=== PATIENT | male | born 1960 | race Caucasian/White ===

== ENCOUNTER 2024-10-27 10:49 | Inpatient (IN) | payer SELFPAY ==
[2024-10-27] VITALS (78 sets, daily range): BP systolic 168–195; BP diastolic 82–118; PULSE 63–87; RESP 12–32; TEMP 36.9–37; O2SAT 92–98; BMI 29.7
--- NOTE | 2024-10-27 10:53 | ECG_ITS ---
[facility] Date: 2024-10-27 Pat Name: Ovidio Issa Department: Room: Gender: Male [employer]: : 1960 Requested By: Naz Dumont Order Number: [id number] Rodrigo MD: VINCENT PRATER Measurements Intervals Filer Rate: 67 P: 33 IL: 192 QRS: 59 QRSD: 119 T: -59 QT: 430 QTc: 456 Interpretive Statements SINUS RHYTHM No previous ECG available for comparison Electronically Signed On 10-27-2024 20:58:09 CDT by VINCENT PRATER [email or web address]
--- NOTE | 2024-10-27 11:03 | W.ED.NEUROSD ---
HPI - Neuro Symptoms/Deficit General: Chief Complaint: Weakness Stated Complaint: arm numbness Time Seen by Provider: 10/27/24 10:57 History of Present Illness: 64-year-old man with a history of reported stroke with no residual deficit now on baby aspirin daily, and hypertension who presents to the emergency room with strokelike symptoms by ambulance. Says around 6 this morning developed some shoulder pain. Around 730 he started feeling weak in his arm and having difficulty opening objects and controlling his arm. After that he developed some numbness in his right face and now he is complaining of some right leg weakness. No dysarthria. No facial droop. No fevers. No cough. No chest pain. No abdominal pain. Related Data Home Medications ?Medication ?Instructions ?Recorded ?Confirmed aspirin 81 mg chewable tablet 81 mg PO QAM 10/02/23 10/27/24 clonidine HCl 0.1 mg tablet See Rx Instructions .Route .COMPLEX 10/02/23 10/27/24 olmesartan 20 mg tablet 20 mg PO DAILY 10/02/23 10/27/24 Allergies Allergy/AdvReac Type Severity Reaction Status Date / Time No Known Allergies Allergy Unverified 10/02/23 09:35 Review of Systems Narrative: Constitutional symptoms: Negative except as documented in HPI. Skin symptoms: Negative except as documented in HPI. Eye symptoms: Negative except as documented in HPI. ENMT symptoms: Negative except as documented in HPI. Respiratory symptoms: Negative except as documented in HPI. Cardiovascular symptoms: Negative except as documented in HPI. Gastrointestinal symptoms: Negative except as documented in HPI. Genitourinary symptoms: Negative except as documented in HPI. Musculoskeletal symptoms: Negative except as documented in HPI. Neurologic symptoms: Negative except as documented in HPI. Psychiatric symptoms: Negative except as documented in HPI. Endocrine symptoms: Negative except as documented in HPI. Physical Exam Narrative: EXAM NARRATIVE: General: Alert, no acute distress. Skin: Warm, dry. Head: Normocephalic, atraumatic. Neck: Supple, trachea midline. Eye: Extraocular movements are intact. Ears, nose, mouth and throat: mucosa moist. Cardiovascular: Regular, Normal peripheral perfusion. Respiratory: Lungs are clear to auscultation, respirations are non-labored, breath sounds are equal, Symmetrical chest wall expansion. Gastrointestinal: Soft, Nontender, Non distended Musculoskeletal: Normal ROM, no deformity. Neurological: Alert and oriented, patient has some definite right handed ataxia. Difficulty with [id number]. Misses my finger completely. Mild difference in ground products director strength on the right. He has some sensory deficit on the right side of his face. Prep some mild drift in his right leg. Psychiatric: Cooperative, appropriate mood & affect. Course Vital Signs: Vital signs: Vital Signs Temperature 98.6 F 10/27/24 10:56 Pulse Rate 72 10/27/24 13:15 Respiratory Rate 18 10/27/24 12:56 Blood Pressure 171/91 10/27/24 13:15 Pulse Oximetry 94 10/27/24 13:15 Oxygen Delivery Me thod Room Air 10/27/24 13:15 MDM - Neuro Symptoms/Deficit Medical Decision Making Medical decision making: Differential diagnosis for patient with focal neurologic deficit(s) includes but not limited to and based on the above HPI, review of systems and physical exam: ischemic stroke, hemorrhagic stroke and embolic stroke secondary to atrial fibrillation), TIA, Desouza's palsey, metabolic encephalopathy with previous stroke. Orders placed to evaluate differential diagnosis based on the above differential, HPI and physical exam NIH Stroke Scale/Score (NIHSS) from [employer] on 10/27/2024 All calculations should be rechecked by clinician prior to use RESULT SUMMARY: 4 points NIH Stroke Scale INPUTS: 1A: Level of consciousness ?> 0 = Alert; keenly responsive 1B: Ask month and age ?> 0 = Both questions right 1C: 'Blink eyes' & 'squeeze hands' ?> 0 = Performs both tasks 2: Horizontal extraocular movements ?> 0 = Normal 3: Visual banks ?> 0 = No visual loss 4: Facial palsy ?> 0 = Normal symmetry 5A: Left arm motor drift ?> 0 = No drift for 10 seconds 5B: Right arm motor drift ?> 1 = Drift, but doesn't hit bed 6A: Left leg motor drift ?> 0 = No drift for 5 seconds 6B: Right leg motor drift ?> 1 = Drift, but doesn't hit bed 7: Limb Ataxia ?> 1 = Ataxia in 1 Limb 8: Sensation ?> 1 = Mild-moderate loss: less sharp/more dull 9: Language/aphasia ?> 0 = Normal; no aphasia 10: Dysarthria ?> 0 = Normal 11: Extinction/inattention ?> 0 = No abnormality CT head: No acute intracranial process. no intracranial hemorrhage, no evidence of infarct. no evidence of acute fracture.This was reviewed and interpreted by myself the ER physician. Consultation: Dr. Moctezuma examined the patient in the emergency room. She determined last known well time to be closer to 7:30 AM. And within the hour for now half-hour time frame so TNKase was given. Under her instruction. Recommends admission to the hospitalist service to the ICU. EKG: Time 1053. Rate 67. Normal sinus rhythm, nonspecific ST changes, no ectopy, normal DC & QRS intervals, This was reviewed and interpreted by myself the ER physician at 1058. Chest x-ray: No acute process. No infiltrate. No pneumothorax. This was reviewed and interpreted by myself the emergency room physician. I also reviewed the radiology report. Lab Review: Laboratory results were reviewed and interpreted by myself the emergency room physician. No leukocytosis. No anemia. No renal failure. Coags are normal. CTA head and neck: No significant cervical or carotid stenosis. Mild plaque in intimal thickening. Paucity of vessels in distal M2/M3 middle cerebral artery territory on the left. No identifiable thrombus. This was reviewed and interpreted by myself the emergency room physician. I also reviewed the radiology report. I reviewed the patient's medical record. Reexamination: Patient remained stable. No increased work of breathing. No altered mental status. No change in symptoms after tenecteplase. Says he still has difficulty with movement of his right hand and cannot tell where it is in space when he has his eyes closed. Consultation: I spoke Dr. Garcia who is on-call for the hospitalist service who agrees to admission to the ICU. Assessment and plan: Cerebrovascular accident Right arm ataxia Hypertension -I discussed the patient with the hospitalist on-call who is admitting the patient. - Discussed findings and plan with patient. Answered any questions. - All laboratory values were reviewed and interpreted personally by myself, the ER physician - All imaging was reviewed and interpreted personally by myself, the ER physician. - Evaluation and treatment of this problem were appropriate in the emergency setting Critical care -I spent a total of >35 minutes of critical care time managing the patient, independent of any other practitioner. -The time involved in the performance of separately reportable procedures was not counted towards critical care time. Lab Data 10/27/24 11:16 10/27/24 11:51 Radiology Impressions Chest X-Ray 10/27/24 11:04 IMPRESSION: Mild atelectasis versus small amount of infiltrate left lung base. No consolidation or effusion. Head CT 10/27/24 11:04 IMPRESSION: 1. No acute intracranial hemorrhage or edema. 2. Mild small vessel changes. Tiny lacunar infarct in the RIGHT internal capsule. Notified Naz Okeefe MD at 10/27/2024 11:16 AM. Head/Neck CTA 10/27/24 11:43 IMPRESSION: 1. No significant cervical carotid artery stenosis. Mild plaque and intimal thickening. 2. Intact vertebral arteries. 3. Paucity of vessels distal M2/M3 middle cerebral artery territory on the LEFT. No identifiable thrombus. 4. No additional areas of stenosis or aneurysm. Laboratory Results WBC 8.18 10^3/uL (3.29-11.43) 10/27/24 11:16 RBC 5.34 10^6/uL (3.85-5.65) 10/27/24 11:16 Hgb 16.00 g/dL (11.27-16.99) 10/27/24 11:16 Hct 48.3 % (37-53) 10/27/24 11:16 MCV 90.4 fl (82-101) 10/27/24 11:16 MCH 30.0 pg (27-33) 10/27/24 11:16 MCHC 33.1 g/dL (30-55) 10/27/24 11:16 RDW 12.5 % (12.1-15.1) 10/27/24 11:16 Plt Count 195 10^3/cmm (157-399) 10/27/24 11:16 MPV 11.0 fL (7.4-10.4) H 10/27/24 11:16 Neut % (Auto) 79.5 % 10/27/24 11:16 Lymph % (Auto) 13.2 % 10/27/24 11:16 Morrison % (Auto) 6.1 % 10/27/24 11:16 Eos % (Auto) 0.2 % 10/27/24 11:16 Baso % (Auto) 0.4 % 10/27/24 11:16 Neut # (Auto) 6.50 10^3/uL (1.8-7.7) 10/27/24 11:16 Lymph # (Auto) 1.1 10^3/uL (0.8-4.8) 10/27/24 11:16 Morrison # (Auto) 0.5 10^3/uL (0.2-0.9) 10/27/24 11:16 Eos # (Auto) 0.0 10^3/uL (0.0-0.8) 10/27/24 11:16 Baso # (Auto) 0.0 10^3/uL (0.0-0.1) 10/27/24 11:16 Nucleated RBC % (auto) 0 % 10/27/24 11:16 Nucleated RBCs # 0.0 /100WBC 10/27/24 11:16 PT 13.80 SECONDS (12.1-14.9) 10/27/24 11:51 INR 0.99 (0.8-1.2) 10/27/24 11:51 APTT 21.9 SECONDS (23.9-36.7) L 10/27/24 11:51 Sodium 136 mmol/L (136-145) 10/27/24 11:51 Potassium 4.0 mmol/L (3.5-5.1) 10/27/24 11:51 Chloride 101 mmol/L (98-107) 10/27/24 11:51 Carbon Dioxide 25 mmol/L (22-29) 10/27/24 11:51 Anion Gap 14.0 (5-19) 10/27/24 11:51 BUN 15 mg/dL (8-23) 10/27/24 11:51 Creatinine 0.9 mg/dL (0.7-1.2) 10/27/24 11:51 GFR Calculation 85.5 mL/min (90-130) L 10/27/24 11:51 Glucose 123 mg/dL (65-115) H 10/27/24 11:51 POC Glucose 124 mg/dL (70-110) H 10/27/24 11:04 Calculated Osmolality 284 mOsm/kg (285-295) L 10/27/24 11:51 Calcium 8.9 mg/dL (8.5-10.5) 10/27/24 11:51 Total Bilirubin 0.6 mg/dL (0.15-1.2) 10/27/24 11:51 AST 18 U/L (0-40) 10/27/24 11:51 ALT 12 U/L (0-41) 10/27/24 11:51 Alkaline Phosphatase 80 U/L (40-130) 10/27/24 11:51 Total Protein 7.8 g/dL (6.6-8.7) 10/27/24 11:51 Albumin 4.0 g/dL (3.5-5.2) 10/27/24 11:51 Globulin 3.8 g/dL (1.3-4.6) 10/27/24 11:51 All radiology interpretation(s) finalized by discharge Discharge Plan Discharge Patient Disposition: Admitted As Inpatient Clinical Impression: Acute CVA (cerebrovascular accident) Condition: Stable Coding Level of Care Code ED [employer] for [employer] Conner
--- NOTE | 2024-10-27 11:04 | XRR_ITS ---
PROCEDURE INFORMATION: Exam: XR Chest Exam date and time: 10/27/2024 11:40 AM Age: 64 years old Clinical indication: Other: AMS; Additional info: Weakness TECHNIQUE: Imaging protocol: Radiologic exam of the chest. Views: 1 view. COMPARISON: No relevant prior studies available. FINDINGS: Lungs: Mild atelectasis versus small amount of infiltrate left lung base. No consolidation. Pleural spaces: No pleural effusion. No pneumothorax. Heart/Mediastinum: Cardiac size is upper limits of normal. Bones/joints: Visualized osseous structures show no acute abnormality. Spondylotic change thoracic spine. Mild degenerative change visualized right shoulder. XR/XR chest 1V portable [id number] IMPRESSION: Mild atelectasis versus small amount of infiltrate left lung base. No consolidation or effusion.
--- NOTE | 2024-10-27 11:04 | CT_ITS ---
WS: [id number] CT HEAD NONCONTRAST HISTORY: possible stroke, right-sided facial numbness. TECHNIQUE: Contiguous axial imaging performed through the brain. Bone and soft tissue windows. Sagittal and coronal reformats reviewed. All CT scans at [facility] use at least one of these dose optimization techniques: automated exposure control; mA and/or kV adjustment per patient size (includes targeted exams where dose is matched to clinical indication); or iterative reconstruction. DLP: 1160.67 mGy COMPARISON: None available. No acute intracranial hemorrhage, midline shift or mass effect. No atrophy or prior infarcts or herniation. Very mild small vessel disease. Tiny lacunar in the RIGHT internal capsule. Mild cerebellar atrophy. Ventricles: Normal size with no hydrocephalus. No inferior displacement of the cerebellar tonsils. Paranasal sinuses: As visualized are clear. Mastoid air cells: Well pneumatized. Calvarium and scalp: Skull is intact with no soft tissue edema or swelling. CT/CT head thrombolytic [id number] IMPRESSION: 1. No acute intracranial hemorrhage or edema. 2. Mild small vessel changes. Tiny lacunar infarct in the RIGHT internal capsu le. Notified Naz Okeefe MD at 10/27/2024 11:16 AM.
[2024-10-27 11:06] LABS: Glucose Point of Care 124 mg/dL (70-110)
[2024-10-27] MEDS: labetalol 5 mg/mL SDV 20mL 10 MG IVP (11:28)
[2024-10-27 11:29] LABS: Basophils % 0.4 %; Eosinophils % 0.2 %; Hematocrit 48.3 % (37-53); Lymphocytes # 1.1 10^3/uL (0.8-4.8); Lymphocytes % 13.2 %; Mean Corpuscular HGB Conc 33.1 g/dL (30-55); Mean Corpuscular Volume 90.4 fl (82-101); Monocytes # 0.5 10^3/uL (0.2-0.9); Monocytes % 6.1 %; Neutrophils % 79.5 %; Nucleated Red Blood Cells % 0 %; Platelet Count 195 10^3/cmm (157-399); Red Blood Count 5.34 10^6/uL (3.85-5.65); Red Cell Distribution Width 12.5 % (12.1-15.1); White Blood Count 8.18 10^3/uL (3.29-11.43)
--- NOTE | 2024-10-27 11:29 | PC.NURSE ---
DISCUSSION OF TIMELINE WITH [facility] IN THE ROOM OCCURRING WITH PATIENT SINCE ARRIVAL BACK FROM CT. UNSURE OF PATIENT WAS LKW AT 0645, 0800, OR 0900.
--- NOTE | 2024-10-27 11:34 | PC.NURSE ---
[facility] STATING HIS LKW 7117.
[2024-10-27] MEDS: tenecteplase 50mg Kit (STROKE) 24 MG IVP (11:40)
--- NOTE | 2024-10-27 11:41 | PC.NURSE ---
PER [facility], GIVEN TNKASE. GIVEN AT 1139.
--- NOTE | 2024-10-27 11:43 | CT_ITS ---
WS: [id number] CT ANGIOGRAM CEREBRAL AND CAROTID ARTERIES HISTORY: Possible stroke TECHNIQUE: CT angiogram is performed of the carotid and cerebral arteries. During arterial injection imaging is obtained from the skull vertex to the aortic arch in 1.25 mm imaging. Coronal and sagittal reformats are submitted. Additional multi planar reformats of the carotid and cerebral arteries are submitted, MIP imaging also reviewed. NASCET criteria utilized. All CT scans at [facility] use at least one of these dose optimization techniques: automated exposure control; mA and/or kV adjustment per patient size (includes targeted exams where dose is matched to clinical indication); or iterative reconstruction. CONTRAST: Omnipaque 350; 100 mL IV. DLP: 582.04 mGy.cm COMPARISON: CT head 10/27/2024 Carotid Angiogram: Right carotid: Common carotid artery: Arises normally from the innominate artery. No significant plaque or stenosis. Internal carotid artery: Small amount of intimal thickening at the bifurcation. No stenosis. External carotid artery: Patent. Left carotid: Common carotid artery: Bovine arch. No stenosis. Internal carotid artery: No plaque or stenosis. External carotid artery: Patent. Right vertebral artery: Unremarkable. Left vertebral artery: Unremarkable. Arises normally from the subclavian artery. Subclavian arteries: No stenosis or significant abnormality. Upper thorax: Normal. Thyroid gland: Normal. Osseous structures: Multilevel cervical spondylosis. Large anterior osteophytes. CEREBRAL ANGIOGRAM: Intracranial vertebral arteries: Normal with no significant atherosclerosis. Basilar artery: No significant stenosis or occlusion. No aneurysm. Intracranial Internal carotid arteries: No stenosis. Mild plaque. Middle cerebral arteries: Distal LEFT middle cerebral arteries, beyond the M2 arteries, paucity of vessels distally. Smaller irregular caliber vessels on the LEFT. Anterior cerebral arteries and ACOM: Normal. Posterior cerebral arteries and PCOM's: Normal. Dural venous sinuses are normally enhancing. CT/CT angio headneck* [id number] IMPRESSION: 1. No significant cervical carotid artery stenosis. Mild plaque and intimal th ickening. 2. Intact vertebral arteries. 3. Paucity of vessels distal M2/M3 middle cerebral artery territory on the LEF T. No identifiable thrombus. 4. No additional areas of stenosis or aneurysm.
[2024-10-27 12:11] LABS: INR 0.99 (0.8-1.2); Partial Thromboplastin Time 21.9 SECONDS (23.9-36.7)
[2024-10-27 12:20] LABS: Alanine Aminotransferase 12 U/L (0-41); Alkaline Phosphatase 80 U/L (40-130); Aspartate Amino Transferase 18 U/L (0-40); Blood Urea Nitrogen 15 mg/dL (8-23); Calcium 8.9 mg/dL (8.5-10.5); Carbon Dioxide 25 mmol/L (22-29); Chloride 101 mmol/L (98-107); Creatinine Clr Calc Pharmacy 103.1309; Globulin 3.8 g/dL (1.3-4.6); Glomerular Filtration Rate 85.5 mL/min (90-130); Glucose 123 mg/dL (65-115); Osmolality Calculated 284 mOsm/kg (285-295); Sodium 136 mmol/L (136-145); Total Bilirubin 0.6 mg/dL (0.15-1.2); Total Protein 7.8 g/dL (6.6-8.7)
--- NOTE | 2024-10-27 12:23 | PC.NURSE ---
went to do assessment, pt is in CT, will assess upon return.
[2024-10-27] MEDS: iohexol 350 mg/mL 500 mL Btl (per mL) IV (12:34)
--- NOTE | 2024-10-27 13:43 | P.HP_ITS ---
Providers/Chief Complaint 2 Admitting Physician: Misa Garcia MD Primary Care Provider: Sylvain Squires Chief Complaint: arm numbness History of Present Illness Ovidio Issa is a 64 year old male who presented to the emergency room this morning with a chief complaint of right shoulder and right arm paresthesias. Symptoms were first noted upon awakening today when he said that he felt like he had slept wrong on his shoulder. Short time later when he was trying to use his phone he noticed that his right thumb and index finger were not functioning correctly. He also had tingling in the arm that involve the entire right upper extremity. He has a history of previous CVA involving left upper and lower extremities and knew that something was not right. Upon arrival to the emergency room he underwent CT of the head that did not show any evidence of bleed. He was evaluated by Dr. Moctezuma and received TNKase. Initial NIH stroke scale score was 4 for drift in the right upper and lower extremity, limb ataxia in the right upper extremity and changes in sensation on the right side. Request was made for admission to hospitalist service for appropriate monitoring and further workup. He has not had any neurological symptoms since his last stroke which was in 2022. Blood pressures have been high but he admits to having issues with whitecoat syndrome. He is chronically on a daily baby aspirin and clonidine as needed. He has intolerance to EDSON inhibitors and cholesterol-lowering drugs in particular statin therapy. He had been tried on multiple statins in the past and had significant muscle pain prohibiting continued treatment. After receiving TNKase, upon arrival to the emergency room he was noted to have gross hematuria. Urine this morning was clear. Mr. Issa is known to have microscopic hematuria. He has been following with Dr. Kenney. He had a CAT scan last week and is scheduled for an outpatient what sounds like cystoscopy to evaluate source of microscopic hematuria on November 06. He also has a known 1 cm kidney stone that was seen on that CAT scan last week. Denies any flank pain or other symptoms associated with kidney stone. He does have a history of prior uric acid kidney stone and lithotripsy some years ago. Review of Systems 2 General: Reports: Other (ROS as per HPI or as otherwise noted here) Medications/Allergies Home Medications ?Medication ?Instructions ?Recorded ?Confirmed ?Last Taken ?Type aspirin 81 mg chewable tablet 81 mg PO QAM 10/02/2310/27/24 History clonidine HCl 0.1 mg tablet See Rx Instructions .Route .COMPLEX 10/02/23 10/27/24 Unknown History Allergies Allergy/AdvReac Type Severity Reaction Status Date / Time lisinopril Allergy ALGY-Joint Verified 10/27/24 13:48 Pain fenofibrate AdvReac ADR-Muscle Verified 10/27/24 13:48 Pain [id number]-[id number] Reductase AdvReac ADR-Muscle Verified 10/27/24 13:48 Inhibitor Pain PFSH Acute 2 PFSH: Medical History (Updated 10/27/24 @ 19:55 by Misa Garcia MD) History of gallstones History of colitis Fatty liver History of kidney stones CPAP ventilation treatment not tolerated Obstructive sleep apnea Hypertension Chronic ischemic right middle cerebral artery (MCA) stroke (~05/2023) Vitals/I&O/Wt Last Vital Signs Temp 98.6 F 10/27/24 10:56 Pulse 77 10/27/24 13:30 Resp 18 10/27/24 13:30 BP 174/82 10/27/24 13:30 Pulse Ox 94 10/27/24 13:15 O2 Del Method Room Air 10/27/24 13:15 Weight last 48 hrs Weight 97.795 kg Physical Exam 2 Narrative: Patient is awake and alert, able to provide history. Normocephalic. Extraocular movements are intact. Mucous membranes are moist. Speech is clear. Neck is supple. Lungs are clear to auscultation bilaterally. Cardiovascular exam reveals a regular rate and rhythm. Abdomen is soft, nontender with positive bowel sounds. Extremities no pitting edema. Drift noted to right upper extremity and left lower extremity. Right upper extremity more predominantly impacted. Sensation is different in right extremities than left extremities. Bvorxp-du-[id number] ataxic in the right upper extremity, fdbn-sv-revy good in the right lower extremity. No abnormal movements. Oriented to person, place and situation. Data 10/27/24 11:16 10/27/24 11:51 Other Labs: Radiology Impressions Chest X-Ray 10/27/24 11:04 IMPRESSION: Mild atelectasis versus small amount of infiltrate left lung base. No consolidation or effusion. Head CT 10/27/24 11:04 IMPRESSION: 1. No acute intracranial hemorrhage or edema. 2. Mild small vessel changes. Tiny lacunar infarct in the RIGHT internal capsule. Notified Naz Okeefe MD at 10/27/2024 11:16 AM. Head/Neck CTA 10/27/24 11:43 IMPRESSION: 1. No significant cervical carotid artery stenosis. Mild plaque and intimal thickening. 2. Intact vertebral arteries. 3. Paucity of vessels distal M2/M3 middle cerebral artery territory on the LEFT. No identifiable thrombus. 4. No additional areas of stenosis or aneurysm. Laboratory Results WBC 8.18 10^3/uL (3.29-11.43) 10/27/24 11:16 RBC 5.34 10^6/uL (3.85-5.65) 10/27/24 11:16 Hgb 16.00 g/dL (11.27-16.99) 10/27/24 11:16 Hct 48.3 % (37-53) 10/27/24 11:16 MCV 90.4 fl (82-101) 10/27/24 11:16 MCH 30.0 pg (27-33) 10/27/24 11:16 MCHC 33.1 g/dL (30-55) 10/27/24 11:16 RDW 12.5 % (12.1-15.1) 10/27/24 11:16 Plt Count 195 10^3/cmm (157-399) 10/27/24 11:16 MPV 11.0 fL (7.4-10.4) H 10/27/24 11:16 Neut % (Auto) 79.5 % 10/27/24 11:16 Lymph % (Auto) 13.2 % 10/27/24 11:16 [place] % (Auto) 6.1 % 10/27/24 11:16 Eos % (Auto) 0.2 % 10/27/24 11:16 Baso % (Auto) 0.4 % 10/27/24 11:16 Neut # (Auto) 6.50 10^3/uL (1.8-7.7) 10/27/24 11:16 Lymph # (Auto) 1.1 10^3/uL (0.8-4.8) 10/27/24 11:16 [place] # (Auto) 0.5 10^3/uL (0.2-0.9) 10/27/24 11:16 Eos # (Auto) 0.0 10^3/uL (0.0-0.8) 10/27/24 11:16 Baso # (Auto) 0.0 10^3/uL (0.0-0.1) 10/27/24 11:16 Nucleated RBC % (auto) 0 % 10/27/24 11:16 Nucleated RBCs # 0.0 /100WBC 10/27/24 11:16 PT 13.80 SECONDS (12.1-14.9) 10/27/24 11:51 INR 0.99 (0.8-1.2) 10/27/24 11:51 APTT 21.9 SECONDS (23.9-36.7) L 10/27/24 11:51 Sodium 136 mmol/L (136-145) 10/27/24 11:51 Potassium 4.0 mmol/L (3.5-5.1) 10/27/24 11:51 Chloride 101 mmol/L (98-107) 10/27/24 11:51 Carbon Dioxide 25 mmol/L (22-29) 10/27/24 11:51 Anion Gap 14.0 (5-19) 10/27/24 11:51 BUN 15 mg/dL (8-23) 10/27/24 11:51 Creatinine 0.9 mg/dL (0.7-1.2) 10/27/24 11:51 GFR Calculation 85.5 mL/min (90-130) L 10/27/24 11:51 Glucose 123 mg/dL (65-115) H 10/27/24 11:51 POC Glucose 124 mg/dL (70-110) H 10/27/24 11:04 Calculated Osmolality 284 mOsm/kg (285-295) L 10/27/24 11:51 Calcium 8.9 mg/dL (8.5-10.5) 10/27/24 11:51 Total Bilirubin 0.6 mg/dL (0.15-1.2) 10/27/24 11:51 AST 18 U/L (0-40) 10/27/24 11:51 ALT 12 U/L (0-41) 10/27/24 11:51 Alkaline Phosphatase 80 U/L (40-130) 10/27/24 11:51 Total Protein 7.8 g/dL (6.6-8.7) 10/27/24 11:51 Albumin 4.0 g/dL (3.5-5.2) 10/27/24 11:51 Globulin 3.8 g/dL (1.3-4.6) 10/27/24 11:51 A&P Assessment and plan (1) Acute CVA (cerebrovascular accident): In a patient with a history of prior CVA involving similar distribution, right MCA, presenting with right upper extremity and lower extremity paresthesias and drift, ataxia and sensory changes. - Add Plavix to aspirin therapy after 24 hours - Intolerant of statin therapy in the past and symptoms were such then with multiple different statins that he does not want to try again - Labetalol drip if needed to maintain blood pressures less than 180/100 though otherwise allowing permissive hypertension - Echocardiogram - Hemoglobin A1c and lipid panel - PT/OT/ST - Reviewed with patient goals of management at this time to try to decrease risk of recurrent stroke and monitor response to TNKase administered in the emergency room. He was given an opportunity to ask questions. (2) Hypertension: Known hypertension with a component of whitecoat hypertension. Only outpatient medication is as needed clonidine. Currently allowing permissive hypertension in line with post TNKase guidelines. Did require treatment with labetalol in the ED prior to TNKase administration. - Labetalol drip if needed - Anticipate initiation of antihypertensive therapy upon discharge potentially with hydrochlorothiazide - Intolerant of EDSON inhibitors - Ideally need to get off of clonidine to limit rebound hypertension and other challenges with long-term management Qualifiers: Hypertension type: primary hypertension Qualified Code(s): I10 - Essential (primary) hypertension (3) Hematuria: Has had microscopic hematuria noted on outpatient basis but currently with gross hematuria status post TNKase in the emergency room. He has a known kidney stone without symptoms. Has been on antibiotics within the past 2 months for treatment for urinary tract infection. Urinalysis today upon admission demonstrates, in addition to hematuria leukocyte esterase and 6-10 white blood cells suggesting potential for urinary tract infection present on admission. Mr. Issa is following on an outpatient basis with Dr. Kenney and is scheduled for what sounds like outpatient cystoscopy on November 06 to evaluate for source of microscopic hematuria. - Empiric coverage with Rocephin - Follow-up pending urine culture - Will need to keep outpatient follow-up with Dr. Kenney and ensure Dr. Kenney is aware of TNKase administration before invasive procedure - Discussed with patient that primary concern with hematuria is that the bleeding gets to the point that he is not able to physically urinate from any clotting that could occur. Presently urine though red in appearance is still fairly clear with no appreciable clots seen. Patient will let nursing staff know if he has the urge to urinate and is physically unable to. We reviewed the risk of Minaya catheter placement after TNKase to include damage with more bleeding. Reviewed with nursing staff as well. Qualifiers: Hematuria type: gross Qualified Code(s): R31.0 - Gross hematuria (4) Obstructive sleep apnea: Intolerant of Cpap therapy - Aware (5) History of kidney stones: Has had previous lithotripsy for 2 cm uric acid stone. Has a known 1 cm kidney stone without any symptoms currently identified on a CT performed last week in [place] for Dr. Kenney in [place]. - Aware - Attempt to get copy of CT imaging done last week Plan Inpatient admission VTE prophylaxis: SCDs currently, has gross hematuria and is status post TNKase so pharmacological DVT prophylaxis is not ordered presently Antibiotics: Rocephin started 10/27 due to abnormal urinalysis/hematuria Pending studies: Urine culture, repeat CT of the head, echocardiogram, A1c, lipid panel Telemetry: ordered due to acute cva Minaya: currently contraindicated due to TNKase; if hematuria worsens or develops difficulty urinating will have to consider Line(s): peripheral IVs Disposition plan: Home with outpatient follow up anticipated. Will need follow- up with urology in [place], potentially sooner than already scheduled given hematuria. Will also need follow-up with neurology and primary care provider. Anticipate addition of alternative antihypertensive management and Plavix to aspirin. Code Status: Full Code Supportive care otherwise Findings, concerns and plans were discussed with patient and he was given an opportunity to ask questions. We talked about treatment with TNKase for stroke and reviewed usual medication management. Also discussed his prior experience with statins and EDSON inhibitors discerning plan of care going forward as outlined. Reviewed need for close follow-up with urology and making sure that they are aware of this hospital stay and TNKase administration. Workup for microscopic hematuria definitively needs to be done in light of findings today. Explained that current hematuria is such that we can monitor but if becomes more significant we may have to consider additional care needs. Patient's was not present during my evaluation but will be back tomorrow PDMP PDMP Reviewed: Not Reviewed Attestations 2 Medical Necessity Statement*: Currently anticipated stay greater than 2 midnights in this gentleman presenting with an acute stroke who received TNKase. In addition he has gross hematuria that became apparent after TNKase administration along with a history of established microscopic hematuria that has been being worked up on an outpatient basis. Plans are as noted above. Diagnoses Acute CVA (cerebrovascular accident) I63.9 Primary hypertension I10 Hypertension type: primary hypertension Gross hematuria R31.0 Hematuria type: gross Obstructive sleep apnea G47.33 History of kidney stones Z87.442
--- NOTE | 2024-10-27 14:06 | USCV_ITS ---
Ovidio Issa Age: 64 Gender: M : 1960 Exam Date: 10/27/2024 14:33 Ordering Phys: Misa Garcia MD Technologist: Exam Location: [facility] [place] Indication: CVA s/p TNKase BP: 181 / 97 HR: 73 Rhythm: Sinus Technical Quality: Adequate MEASUREMENTS (Male / Female) Normal Values 2D ECHO LV Diastolic Diameter PLAX 4.3 cm 4.2 - 5.9 / 3.9 - 5.3 cm IVS Diastolic Thickness 1.3 cm 0.6 - 1.0 / 0.6 - 0.9 cm IVS Systolic Thickness 1.7 cm LVPW Diastolic Thickness 1.3 cm 0.6 - 1.0 / 0.6 - 0.9 cm LVPW Systolic Thickness 1.5 cm LVOT Diameter 2.0 cm LV Ejection Fraction 2D Teich 55.4 % LV Ejection Fraction MOD 4C 47.6 % LV Ejection Fraction MOD 2C 28.6 % LV Ejection Fraction 2C AL 29.3 % LA Diameter 2.9 cm RA Systolic Volume 4C AL 39.3 ml RA Systolic Volume 4C MOD 38.4 ml Aorta at Sinotubular Diameter 3.4 cm IVC Diameter 2.0 cm M-MODE LA Ao Ratio MM 1.0 AV Cusp Separation MM 2.3 cm DOPPLER AV Peak Velocity 97.0 cm/s LVOT Peak Velocity 64.0 cm/s AV Area Cont Eq vti 2.8 cm squared AV Area Cont Eq pk 2.1 cm squared MV Peak Velocity 110.0 cm/s MV Area PHT 6.0 cm squared Mitral E to A Ratio 0.4 TV Peak Velocity 141.5 cm/s TR Peak Velocity 155.0 cm/s TR Peak Gradient 9.6 mmHg TV Peak E Velocity 77.0 cm/s PV Peak Velocity 136.0 cm/s FINDINGS Left Ventricle Left ventricle is normal in size. Moderate concentric left ventricular hypertrophy seen. LV systolic function is normal with EF of 50-55%. Grade 1 diastolic dysfunction Right Ventricle Normal in size and function Right Atrium Normal in size Left Atrium Normal in size Mitral Valve Structurally normal mitral valve. Mild mitral regurgitation Aortic Valve Grossly normal. No significant stenosis or regurgitation Tricuspid Valve Insufficient TR jet to calculate RVSP Pulmonic Valve Not well visualized Pericardium Normal Aorta Normal in size IVC Not well visualized CONCLUSIONS LV systolic function is normal with EF of 50-55% Grade 1 diastolic dysfunction Moderate concentric left ventricular hypertrophy seen Mild mitral regurgitation No comparison studies are available. Nilay Boyce MD (Electronically Signed) Final Date: 28 October 2024 19:55 S
--- NOTE | 2024-10-27 14:28 | PC.NURSE ---
Patient arrived to ICU at 1358.
[2024-10-27 14:42] LABS: Bilirubin Urine Negative (Negative); Blood Urine 3+ (Negative); Glucose Urine UA Negative (Normal); Ketones Urine Negative (Negative); Leukocyte Esterase Urine 1+ (Negative); Nitrate Urine Negative (Negative); Protein Urine 1+ (Negative); Urine Appearance Cloudy (CLEAR)
[2024-10-27 14:47] LABS: Bacteria Urine None Seen /hpf; RBC Urine >100 /hpf (0-2); Squamous Epithelial Cell Urine 0-5 /hpf (0-5)
[2024-10-27 14:48] LABS: Specific Gravity, Urine 1.067 (1.005-1.030); Urine Color Red (Yellow)
[2024-10-27 14:49] LABS: Add Urine Culture? Yes
--- NOTE | 2024-10-27 18:44 | P.DS_ITS ---
Discharge Providers Date of Admission: 10/27/24 13:39 Date of Discharge: October 27, 2024 Attending Provider at Admission: Misa Garcia MD Attending Provider at Discharge: Misa Garcia MD Primary Care Provider: Sylvain Squires Diagnoses at Discharge Discharge Diagnosis (1) Acute CVA (cerebrovascular accident): Status: Acute (2) Hypertension: Status: Chronic Qualifiers: Hypertension type: primary hypertension Qualified Code(s): I10 - Essential (primary) hypertension (3) Obstructive sleep apnea: Status: Chronic Reason for Visit 2 Reason for Visit: arm numbness Discharge Data Studies Completed and Pending Completed Studies During Hospitalization Category Date Time Status CT head thrombolytic [id number] Stat Cat Scan 10/27/24 11:04 Completed CTA head neck [CT angio headneck* [id number]] Stat Cat Scan 10/27/24 11:43 Completed XR chest 1V portable [id number] Stat Exams 10/27/24 11:04 Completed Pending at discharge Category Date Time Status CT head wo con* [id number] Routine Cat Scan 10/28/24 09:00 Ordered Hemoglobin A1C AM LABS Lab 10/28/24 04:00 Ordered Lipid Panel AM LABS Lab 10/28/24 04:00 Ordered Urine Culture Stat Lab 10/27/24 14:29 Received CV. echo complete* [id number] Routine Ultrasound 10/27/24 14:06 Taken Radiology Impressions Chest X-Ray 10/27/24 11:04 IMPRESSION: Mild atelectasis versus small amount of infiltrate left lung base. No consolidation or effusion. Head CT 10/27/24 11:04 IMPRESSION: 1. No acute intracranial hemorrhage or edema. 2. Mild small vessel changes. Tiny lacunar infarct in the RIGHT internal capsule. Notified Naz Okeefe MD at 10/27/2024 11:16 AM. Head/Neck CTA 10/27/24 11:43 IMPRESSION: 1. No significant cervical carotid artery stenosis. Mild plaque and intimal thickening. 2. Intact vertebral arteries. 3. Paucity of vessels distal M2/M3 middle cerebral artery territory on the LEFT. No identifiable thrombus. 4. No additional areas of stenosis or aneurysm. Laboratory Results WBC 8.18 10^3/uL (3.29-11.43) 10/27/24 11:16 RBC 5.34 10^6/uL (3.85-5.65) 10/27/24 11:16 Hgb 16.00 g/dL (11.27-16.99) 10/27/24 11:16 Hct 48.3 % (37-53) 10/27/24 11:16 MCV 90.4 fl (82-101) 10/27/24 11:16 MCH 30.0 pg (27-33) 10/27/24 11:16 MCHC 33.1 g/dL (30-55) 10/27/24 11:16 RDW 12.5 % (12.1-15.1) 10/27/24 11:16 Plt Count 195 10^3/cmm (157-399) 10/27/24 11:16 MPV 11.0 fL (7.4-10.4) H 10/27/24 11:16 Neut % (Auto) 79.5 % 10/27/24 11:16 Lymph % (Auto) 13.2 % 10/27/24 11:16 [place] % (Auto) 6.1 % 10/27/24 11:16 Eos % (Auto) 0.2 % 10/27/24 11:16 Baso % (Auto) 0.4 % 10/27/24 11:16 Neut # (Auto) 6.50 10^3/uL (1.8-7.7) 10/27/24 11:16 Lymph # (Auto) 1.1 10^3/uL (0.8-4.8) 10/27/24 11:16 [place] # (Auto) 0.5 10^3/uL (0.2-0.9) 10/27/24 11:16 Eos # (Auto) 0.0 10^3/uL (0.0-0.8) 10/27/24 11:16 Baso # (Auto) 0.0 10^3/uL (0.0-0.1) 10/27/24 11:16 Nucleated RBC % (auto) 0 % 10/27/24 11:16 Nucleated RBCs # 0.0 /100WBC 10/27/24 11:16 PT 13.80 SECONDS (12.1-14.9) 10/27/24 11:51 INR 0.99 (0.8-1.2) 10/27/24 11:51 APTT 21.9 SECONDS (23.9-36.7) L 10/27/24 11:51 Sodium 136 mmol/L (136-145) 10/27/24 11:51 Potassium 4.0 mmol/L (3.5-5.1) 10/27/24 11:51 Chloride 101 mmol/L (98-107) 10/27/24 11:51 Carbon Dioxide 25 mmol/L (22-29) 10/27/24 11:51 Anion Gap 14.0 (5-19) 10/27/24 11:51 BUN 15 mg/dL (8-23) 10/27/24 11:51 Creatinine 0.9 mg/dL (0.7-1.2) 10/27/24 11:51 GFR Calculation 85.5 mL/min (90-130) L 10/27/24 11:51 Glucose 123 mg/dL (65-115) H 10/27/24 11:51 POC Glucose 124 mg/dL (70-110) H 10/27/24 11:04 Calculated Osmolality 284 mOsm/kg (285-295) L 10/27/24 11:51 Calcium 8.9 mg/dL (8.5-10.5) 10/27/24 11:51 Total Bilirubin 0.6 mg/dL (0.15-1.2) 10/27/24 11:51 AST 18 U/L (0-40) 10/27/24 11:51 ALT 12 U/L (0-41) 10/27/24 11:51 Alkaline Phosphatase 80 U/L (40-130) 10/27/24 11:51 Total Protein 7.8 g/dL (6.6-8.7) 10/27/24 11:51 Albumin 4.0 g/dL (3.5-5.2) 10/27/24 11:51 Globulin 3.8 g/dL (1.3-4.6) 10/27/24 11:51 Urine Color Red (Yellow) A 10/27/24 14: Urine Appearance Cloudy (CLEAR) A 10/27/24 14: Urine pH 7.0 (5-7) 10/27/24 14:29 Ur Specific [place] 1.067 (1.005-1.030) H 10/27/24 14: Urine Protein 1+ (Negative) A 10/27/24 14:29 Urine Glucose (UA) Negative (Normal) 10/27/24 14:29 Urine Ketones Negative (Negative) 10/27/24 14:29 Urine Blood 3+ (Negative) A 10/27/24 14:29 Urine Nitrate Negative (Negative) 10/27/24 14:29 Urine Bilirubin Negative (Negative) 10/27/24 14:29 Urine Urobilinogen 1.0 mg/dL (Negative) 10/27/24 14:29 Ur Leukocyte Esterase 1+ (Negative) A 10/27/24 14:29 Urine RBC >100 /hpf (0-2) H 10/27/24 14:29 Urine WBC 6-10 /hpf (0-5) 10/27/24 14:29 Ur Squamous Epith Cells 0-5 /hpf (0-5) 10/27/24 14: Amorphous Sediment Not Reportable 10/27/24 14:29 Urine Bacteria None seen /hpf (NONE) 10/27/24 14: Hyaline Casts 0.40 /lpf 10/27/24 14:29 Vitals Last Vital Signs Temp 98.5 F 10/27/24 14:05 Pulse 87 10/27/24 18:26 Resp 16 10/27/24 18:26 BP 180/103 10/27/24 18:26 Pulse Ox 97 10/27/24 18:00 O2 Del Method Room Air 10/27/24 14:20 Discharge Plan Discharge Patient Disposition: Home Condition: Stable Prescriptions: No Action aspirin 81 mg tablet,chewable 81 mg PO QAM clonidine HCl 0.1 mg tablet See Rx Instructions .ROUTE .COMPLEX Rx Instructions: Take 1 tablet by mouth as needed for blood pressure greater than 160/90. Max of 3 times daily. Referrals: Chalino Squires MD [Primary Care Provider] - Patient Instructions: Opioid Safety Quality Metrics Clinical Quality Measures [ Cerebrovascular Accident { Contraindication to Antithrombotic: Medical contraindication (initially contraindicated due to TNKase); Contraindication to Statin: Adverse reaction to drug; Contraindication to antithrombotic day 2: None; Antithrombotic given day 2 (ordered to start day 2); Contraindication to tPA: None; TPA given (TNKase given); Onset of Symptoms Date: 10/27/24; Symptom Onset Unknown: No; Reason stroke education not provided: Stroke education provided to patient; Pt Provided Written Stroke Discharge Instructions: Patient given written information; Rehab services assessed: Physical therapy, Occupational therapy, Speech therapy;}] Coding Level of Care Code Acute Code for Chg Fwd Diagnoses Acute CVA (cerebrovascular accident) I63.9 Primary hypertension I10 Hypertension type: primary hypertension Obstructive sleep apnea G47.33
[2024-10-27] MEDS: cefTRIAXone 1,000 mg SDV 1000 MG IVP (20:21)
[2024-10-28] VITALS (113 sets, daily range): BP systolic 96–165; BP diastolic 52–124; PULSE 45–83; RESP 15–26; TEMP 36.5–36.8; O2SAT 87–96
[2024-10-28] MEDS: labetalol 300 MG in sodium chloride 0.9% 240 ML 30 MG IV (01:20)
[2024-10-28 03:51] LABS: Basophils # 0.1 10^3/uL (0.0-0.1); Basophils % 0.4 %; Eosinophils # 0.1 10^3/uL (0.0-0.8); Eosinophils % 0.7 %; Hematocrit 45.5 % (37-53); Lymphocytes # 2.4 10^3/uL (0.8-4.8); Lymphocytes % 18.8 %; Mean Corpuscular HGB Conc 33.6 g/dL (30-55); Mean Corpuscular Hemoglobin 29.7 pg (27-33); Mean Corpuscular Volume 88.3 fl (82-101); Mean Platelet Volume 10.5 fL (7.4-10.4); Monocytes # 0.9 10^3/uL (0.2-0.9); Monocytes % 6.9 %; Neutrophils # 9.12 10^3/uL (1.8-7.7); Neutrophils % 72.9 %; Nucleated Red Blood Cells % 0 %; Platelet Count 247 10^3/cmm (157-399); Red Blood Count 5.15 10^6/uL (3.85-5.65); Red Cell Distribution Width 12.6 % (12.1-15.1); White Blood Count 12.51 10^3/uL (3.29-11.43)
[2024-10-28 04:21] LABS: Chol HDL Ratio 6.24 mg/dL (1.0-5.00); Cholesterol 212 mg/dL (0-200); HDL Cholesterol 34 mg/dL (60-100); LDL Cholesterol Calculated 146 mg/dL (50-129); LDL HDL Ratio 4.29 RATIO (0.00-3.22); Triglycerides 161 mg/dL (0-150)
[2024-10-28 04:27] LABS: Anion Gap 18.1 (5-19); Blood Urea Nitrogen 14 mg/dL (8-23); Calcium 9.2 mg/dL (8.5-10.5); Carbon Dioxide 24 mmol/L (22-29); Chloride 98 mmol/L (98-107); Creatinine Clr Calc Pharmacy 103.9519; Glomerular Filtration Rate 85.5 mL/min (90-130); Glucose 149 mg/dL (65-115); Osmolality Calculated 285 mOsm/kg (285-295); Potassium 4.1 mmol/L (3.5-5.1); Sodium 136 mmol/L (136-145)
[2024-10-28 04:29] LABS: Estmated Average Glucose 114; Hemoglobin A1C 5.6 % (4.0-6.0)
--- NOTE | 2024-10-28 07:50 | P.PNCC_ITS ---
Stroke Alert Activation ED Arrival Date: 10/27/24 ED Arrival Time: 10:56 Last Known Normal/at Baseline: 2-3 hours ago Other Last Known Well Infomation: He arrived in the emergency department at 1056 and was seen immediately by Dr. Okeefe, who described to me that the patient presented with shoulder pain and right-sided weakness. Stroke alert was called. I came immediately to the emergency department and questioned the patient and his repeatedly about the time course, which was initially unclear. He was normal when he woke up at 6 AM but he had pain in the right shoulder and thought he slept wrong. He developed numbness in his right hand and when he told his about it she did a complete neurologic exam for stroke (she is an EMT in [place]). She did a complete exam at 730 and she left for work at 8. He was normal when she left. A short time after she left he tried to get up jar of milk out of the refrigerator to put on his cereal and had to use both hands to carry the milk. He ate a couple of bites of cereal and vomited. He called his at around 815 and when he described her that he had vomited and was feeling more numb on the right side of his face she called EMS to come get him. He was walking about in the house when they arrived. By the time EMS arrived around 9 AM (they live in [place]) he was having trouble controlling his right arm and that was true on arrival here. There was quite a bit of [id number] description as the patient's was able to guarantee that he was normal when she examined him at 07 30 and at the time that she left for work at 8, last known well was established to be 8:00. He was therefore 3-1/2 hours out and a candidate for thrombolytic therapy. I carefully discussed the pros and cons of treatment with the patient and his and they agreed that we should go ahead with TNK. The patient's blood pressure was 195/110 and he received 1 dose of labetalol 10 mg IV and his blood pressure came down to 170/100. The nurse gave the bolus of TNK at 1139. I discussed risk factors. The patient is not regularly following with a physician nor does he check his blood pressure at home. He had a previous stroke treated at [facility] with TNK. Stroke Alert Activated by: triage Stroke Alert Activation Time: 11:00 Stroke MD @ Bedside Time: 11:10 NIH Stroke Scale Time: 11:15 NIH stroke score NIHSS: Level Of Consciousness - 1a: 0 Level Of Consciousness Questions - 1b: Both Correct Level Of Consciousness Commands - 1c: Both Correct Best Gaze - 2: Normal Visual Willis - 3: No Visual Loss Facial Palsy - 4: Minor Paralysis Motor Arm Right - 5: Effort Against [place] Motor Arm Left - 5: No Drift Motor Leg Right - 6: Drift Motor Leg Left - 6: No Drift Limb Ataxia - 7: Present In One Limb Sensory - 8: Mild To Moderate Loss Best Language - 9: No Aphasia Dysarthia - 10: Mild/Moderate Dysarthia Extinction And Inattention - 11: 0 Score: Total Score: 7 Stroke Alert Data/Treatment Time to CT of Head: 11:04 CT Results Time: 11:16 CT Impression: Lacunar infarct right internal capsule and white matter changes. Stroke Risk Factors: hypertension and sleep apnea tPA Started Time: tPA Started - Time: 11:39 tPA Admin Prior to Arrival: No Patient & Family Educated on: Cause of Stroke, Risk Factors, Treament Plan, Stroke Education Booklet and tPA Risks/Benefits Other Patient & Family Education: I discussed with him that he is going to have to pay closer attention to his blood pressure at home Standardized Stroke Orders Used: Yes Critical Care Time Critical Care Time: 30 - 74 mins A&P Assessment and plan (1) Left acute arterial ischemic stroke, MCA (middle cerebral artery): The patient presents with right sided numbness and weakness, arm greater than face greater than leg. This may be another lacunar infarct like he suffered 2 years ago. His main risk factor is uncontrolled blood pressure and he has not been monitoring his blood pressure at home. I explained to him that this will need to change as hypertension is the #1 risk factor for stroke. We went over the stroke book. He may be a candidate for Inspire therapy for his obstructive sleep apnea since he did not tolerate CPAP. He will need a repeat sleep study after discharge. Plan to admit and repeat CT in the morning. CT angiogram was performed in the emergency department and showed paucity of vessels in the distal L MCA territory which is consistent with his findings and would indicate he may have had a large vessel occlusion that showered L MCA territory. For that reason it is imperative to do further cardiac workup including echocardiogram and prolonged monitoring. (2) Obstructive sleep apnea: (3) Hypertension: Qualifiers: Hypertension type: primary hypertension Qualified Code(s): I10 - Essential (primary) hypertension (4) CPAP ventilation treatment not tolerated: PDMP PDMP Reviewed: Not Reviewed Coding Level of Care Code Acute Code for Chg Fwd Diagnoses Left acute arterial ischemic stroke, MCA (middle cerebral artery) I63.512 Obstructive sleep apnea G47.33 Primary hypertension I10 Hypertension type: primary hypertension CPAP ventilation treatment not tolerated Z78.9
--- NOTE | 2024-10-28 09:00 | CT_ITS ---
WS: [id number] CT HEAD NONCONTRAST HISTORY: s/p TNKase 10/27 TECHNIQUE: Contiguous axial imaging performed through the brain. Bone and soft tissue windows. Sagittal and coronal reformats reviewed. All CT scans at [facility] use at least one of these dose optimization techniques: automated exposure control; mA and/or kV adjustment per patient size (includes targeted exams where dose is matched to clinical indication); or iterative reconstruction. DLP: 1159.08 mGy.cm COMPARISON: 10/19/2024 No acute intracranial hemorrhage, midline shift or mass effect. No atrophy or prior infarcts or herniation. No new area of sulcal effacement. Ventricles: Normal size with no hydrocephalus. Paranasal sinuses: As visualized are clear. Mastoid air cells: Well pneumatized. Calvarium and scalp: Skull is intact with no soft tissue edema or swelling. CT/CT head wo con* [id number] IMPRESSION: 1. No acute intracranial hemorrhage or edema. 2. No sulcal effacement or subacute infarct identified.
--- NOTE | 2024-10-28 09:16 | US_ITS ---
WS: [id number] Complete ABDOMINAL ULTRASOUND HISTORY: RUQ PAIN COMPARISON: None available. Liver: 17.7 cm in length. Normal size liver and echogenicity. No bile duct dilatation or mass. Portal Vein: Normal hepatopetal flow with monophasic waveform. Gallbladder: Normally distended gallbladder with numerous stones. Numerous stones are identified. No wall thickening or pericholecystic fluid. CBD: 0.4 cm Pancreas: Normal size and echogenicity. Right kidney: 12.3 cm x 5.0 x 5.3 cm. Cortex:1.4 cm. Normal size and echogenicity. No hydronephrosis or mass. Left kidney: 12.7 (cm) cm x 5.9 (cm) cm x 6.4 (cm) cm. Cortex: 1.3 cm. Normal size and echogenicity. No hydronephrosis or mass. Spleen: 10.8 cm. Normal size and echogenicity. Aorta and IVC: Unremarkable abdominal aorta and IVC. US/US abdomen complete* [id number] Impression: 1. Cholelithiasis. Numerous stones within the gallbladder. 2. No intrahepatic duct dilatation.
[2024-10-28] MEDS: ondansetron 2 mg/ML SDV 2 mL 4 MG IVP (10:07)
[2024-10-28] MEDS: aspirin 81 mg EC Tablet PO (14:30)
--- NOTE | 2024-10-28 14:52 | P.PN_ITS ---
Subjective 2 Subjective: Patient was seen this morning, denies any fevers, no chills, no nausea, no vomiting he complains of right upper right lower extremity weakness, trouble coordinating, no headache, blurry vision, no nausea, no vomiting, denies any hematuria, he does report intermittent right upper quadrant pain Vitals/I&O/Wt Last Vital Signs Temp 98.0 F 10/28/24 11:26 Pulse 61 10/28/24 13:53 Resp 17 10/28/24 13:53 BP 138/64 10/28/24 13:53 Pulse Ox 93 10/28/24 12:35 O2 Del Method Room Air 10/27/24 14:20 10/27/24 10/28/24 10/28/24 22:59 06:59 14:59 Intake Total 245 / 245 58.5 / 303.5 240 / 240 Output Total 150 / 150 Balance 95 / 95 58.5 / 153.5 240 / 240 Weight last 48 hrs Weight 99.5 kg Weight 97.795 kg Physical Exam 2 Const: COMMON NORMALS: no acute distress and patient oriented x3 Resp: COMMON NORMALS: normal respiratory effort, No retractions, No use of accessory muscles and clear to auscultation bilaterally AUSCULTATION: clear to auscultation bilaterally Cardio: COMMON NORMALS: regular rate, regular rhythm, S1 normal heart sound present and S2 normal heart sound present RATE: regular rate RHYTHM: r egular rhythm HEART SOUNDS: S1 normal heart sound present and S2 normal heart sound present GI: COMMON NORMALS: Normal to inspection, nondistended, normoactive bowel sounds present and non-tender Extremity: COMMON NORMALS: no pedal edema Neuro: COMMON NORMALS: patient oriented x3 OTHER: Right upper extremity strength significantly diminished strength 1 out of 5, Right lower extremity strength significantly diminished, 1 out of 5 No facial droop, slurring of words, Does have a flat affect Numbness and weakness right upper right lower extremity Psych: COMMON NORMALS: mental status grossly normal Data 10/28/24 03:18 10/28/24 03:18 Micro: Microbiology 10/27/24 14:29 Urine Culture - Preliminary Urine,Clean Catch A&P Assessment and plan (1) Acute CVA (cerebrovascular accident): - Acute CVA - presenting with right upper extremity and lower extremity paresthesias and drift, ataxia and sensory changes - Status post tPA -With persistent right upper right lower extremity weakness, paresthesias - Add Plavix to aspirin therapy after 24 hours - Intolerant of statin therapy in the past and symptoms were such then with multiple different statins that he does not want to try again - Maintain systolic blood pressure less than 180, diastolic less than 110 - Echocardiogram bubble study - Hemoglobin A1c within normal limits and lipid panel LDL 146, triglycerides 161, cholesterol 212 - PT/OT/ST (2) Hypertension: - Blood pressure control Qualifiers: Hypertension type: primary hypertension Qualified Code(s): I10 - Essential (primary) hypertension (3) Hematuria: - Follows Dr. Kenney and is scheduled for what sounds like outpatient cystoscopy on November 06 - Resolved today - Empiric coverage with Rocephin - Follow-up pending urine culture - Bladder scan Qualifiers: Hematuria type: gross Qualified Code(s): R31.0 - Gross hematuria (4) Obstructive sleep apnea: Intolerant of Cpap therapy (5) History of kidney stones: - Repeat renal ultrasound Plan VTE prophylaxis: SCDs currently, has gross hematuria and is status post TNKase so pharmacological DVT prophylaxis is not ordered presently Telemetry: ordered due to acute cva Minaya: Will consider Minaya catheter Line(s): peripheral IVs Disposition plan: Might require jail placement Code Status: Full Code PDMP PDMP Reviewed: Not Reviewed Attestations 2 Medical Necessity Statement*: Patient requires hospitalization for acute CVA, right-sided weakness Diagnoses Acute CVA (cerebrovascular accident) I63.9 Primary hypertension I10 Hypertension type: primary hypertension Gross hematuria R31.0 Hematuria type: gross Obstructive sleep apnea G47.33 History of kidney stones Z87.442
--- NOTE | 2024-10-28 15:33 | PC.NURSE ---
Received order for bladder scan, upon scan findings notified Dr. Lombardi, received orders for alanis. Orders placed. Alanis inserted.
--- NOTE | 2024-10-28 16:57 | PC.NURSE ---
Report called to Gisella VARELA. going to room 271
--- NOTE | 2024-10-28 17:14 | PC.NURSE ---
Called to inform her of room assignment on [facility], left voice mail.
--- NOTE | 2024-10-28 17:43 | USCV_ITS ---
Ovidio Issa Age: 64 Gender: M : 1960 Exam Date: 10/28/2024 21:05 Ordering Phys: Norberto Lombardi MD Technologist: CORTEZ Exam Location: [facility] [place] Indication: CVA , profound RIGHT hemiparesis BP: 138 / 64 HR: 52 Rhythm: Sinus Technical Quality: Adequate MEASUREMENTS (Male / Female) Normal Values 2D ECHO LV Diastolic Diameter PLAX 4.6 cm 4.2 - 5.9 / 3.9 - 5.3 cm IVS Diastolic Thickness 1.8 cm 0.6 - 1.0 / 0.6 - 0.9 cm IVS Systolic Thickness 2.8 cm LVPW Diastolic Thickness 1.3 cm 0.6 - 1.0 / 0.6 - 0.9 cm LVPW Systolic Thickness 1.6 cm LVOT Diameter 2.3 cm LV Ejection Fraction 2D Teich 65.7 % LV Ejection Fraction MOD 4C 54.7 % LV Ejection Fraction MOD 2C 50.8 % LV Ejection Fraction 2C AL 50.9 % LA Diameter 4.2 cm Aorta at Sinotubular Diameter 3.3 cm IVC Diameter 1.7 cm M-MODE LA Ao Ratio MM 1.3 AV Cusp Separation MM 2.1 cm DOPPLER AV Peak Velocity 155.0 cm/s LVOT Peak Velocity 84.0 cm/s AV Area Cont Eq vti 2.6 cm squared AV Area Cont Eq pk 2.2 cm squared MV Area PHT 3.3 cm squared Mitral E to A Ratio 1.0 TV Peak Velocity 256.0 cm/s TR Peak Velocity 264.0 cm/s TR Peak Gradient 27.9 mmHg TV Peak E Velocity 60.0 cm/s PV Peak Velocity 123.0 cm/s FINDINGS Left Ventricle Left ventricle is normal in size. LV systolic function is normal with EF of 55-60%. No regional wall motion abnormalities. Right Ventricle Normal in size and function Right Atrium Normal in size. Bubble study does not show evidence of intracardiac shunting. Left Atrium Normal in size Mitral Valve Structurally normal mitral valve. Aortic Valve Grossly normal. No significant stenosis or regurgitation. Tricuspid Valve Mild tricuspid regurgitation. Pulmonary artery systolic pressure is normal Pulmonic Valve Not well visualized Pericardium Normal Aorta Normal in size IVC Appears to be normal CONCLUSIONS LV systolic function is normal with EF of 55-60% Bubble study does not show evidence of intracardiac shunting Mild tricuspid regurgitation Nilay Boyce MD (Electronically Signed) Final Date: 29 October 2024 21:53 S
[2024-10-28] MEDS: cefTRIAXone 1,000 mg SDV 1000 MG IVP (20:36)
[2024-10-29] VITALS (12 sets, daily range): BP systolic 105–151; BP diastolic 52–75; PULSE 44–71; RESP 16–17; TEMP 36.5–37.1; O2SAT 92–94
[2024-10-29 02:43] LABS: Basophils % 0.3 %; Eosinophils # 0.1 10^3/uL (0.0-0.8); Eosinophils % 0.7 %; Hematocrit 42.6 % (37-53); Lymphocytes # 2.5 10^3/uL (0.8-4.8); Lymphocytes % 18.3 %; Mean Corpuscular HGB Conc 32.9 g/dL (30-55); Mean Corpuscular Volume 88.2 fl (82-101); Mean Platelet Volume 10.7 fL (7.4-10.4); Monocytes # 1.2 10^3/uL (0.2-0.9); Monocytes % 8.8 %; Neutrophils % 71.5 %; Nucleated Red Blood Cells % 0 %; Platelet Count 237 10^3/cmm (157-399); Red Blood Count 4.83 10^6/uL (3.85-5.65); Red Cell Distribution Width 13.1 % (12.1-15.1); White Blood Count 13.57 10^3/uL (3.29-11.43)
[2024-10-29 05:06] LABS: Alanine Aminotransferase 11 U/L (0-41); Albumin Level 3.6 g/dL (3.5-5.2); Alkaline Phosphatase 68 U/L (40-130); Anion Gap 16.7 (5-19); Aspartate Amino Transferase 20 U/L (0-40); Blood Urea Nitrogen 28 mg/dL (8-23); Calcium 8.9 mg/dL (8.5-10.5); Carbon Dioxide 24 mmol/L (22-29); Chloride 97 mmol/L (98-107); Creatinine Clr Calc Pharmacy 66.8262; Globulin 3.6 g/dL (1.3-4.6); Glomerular Filtration Rate 51.4 mL/min (90-130); Glucose 123 mg/dL (65-115); Osmolality Calculated 285 mOsm/kg (285-295); Potassium 3.7 mmol/L (3.5-5.1); Sodium 134 mmol/L (136-145); Total Bilirubin 0.6 mg/dL (0.15-1.2); Total Protein 7.2 g/dL (6.6-8.7)
[2024-10-29] MEDS: clopidogrel 75 mg Tablet PO (08:33)
[2024-10-29 09:00] LABS: Erythrocyte Sedimentation Rate 18 mm/hr (0-10)
[2024-10-29 09:04] LABS: C Reactive Protein 4.4 mg/L (0.0-4.9)
[2024-10-29 09:12] LABS: Procalcitonin 0.08 ng/mL (0-0.5)
--- NOTE | 2024-10-29 09:26 | XR_ITS ---
WS: [id number] Portable AP upright chest, 10/29/2024 Clinical Data: sob, crackles Comparison: Portable chest, 10/27/2024 Findings: There is patchy opacity overlying the left diaphragm which could represent atelectasis and/or pneumonia. No nodules, masses or effusions are seen. The heart is normal. The pulmonary vascularity is not increased. No pneumothorax is seen. The aortic arch and descending thoracic aorta show calci fication and tortuosity. There are monitor leads on the chest wall. XR/XR chest 1V portable [id number] Impression: 1. Possible pneumonia and/or atelectasis over surface of left diaphragm. 2. Atherosclerosis.
--- NOTE | 2024-10-29 09:32 | ECG_ITS ---
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 Measurements Intervals [place] Rate: 46 P: 34 MO: 179 QRS: 64 QRSD: 106 T: 191 QT: 495 QTc: 434 Interpretive Statements SINUS BRADYCARDIA MODERATE T-WAVE ABNORMALITY, CONSIDER LATERAL ISCHEMIA [-0.1+ mV T-WAVE IN I/aVL/V5/V6] Compared to ECG 10/27/2024 10:53:03 T-wave abnormality now present Possible ischemia now present Sinus rhythm no longer present Electronically Signed On 11-03-2024 10:16:13 CDT by Nilay Boyce M.D. [email or web address] [id number]
[2024-10-29] MEDS: sodium chloride 0.9% 1,000 ML 75 ML IV ×2 (10:41→22:22)
[2024-10-29] MEDS: aspirin 81 mg EC Tablet PO (13:54)
--- NOTE | 2024-10-29 14:20 | CT_ITS ---
WS: [id number] CT ABDOMEN WITH CONTRAST HISTORY: flank pain Contiguous single phase 5 mm axial imaging performed to the abdomen. Oral contrast has not been provided. Coronal and sagittal reformats are submitted. All CT scans at [facility] use at least one of these dose optimization techniques: automated exposure control; mA and/or kV adjustment per patient size (includes targeted exams where dose is matched to clinical indication); or iterative reconstruction. IV CONTRAST: None Oral contrast: No DLP: 613.48 mGy.cm COMPARISON: None available. Lower thorax: Bibasilar atelectasis and pleural thickening. Heart is normal size. No hiatal hernia. Liver/biliary system: Normal size with no intrahepatic dilatation. Gallbladder: Normally distended gallbladder with numerous stones within the lumen. No adjacent inflammation. Common bile duct is not dilated. Pancreas: Negative. Spleen: Normal size spleen. No mass or infarct. Adrenal glands: Normal. Right kidney: Mild perinephric stranding. Central RIGHT renal pelvis calcification measuring 2.0 x 0.6 cm. There is mild inflammation in the renal pelvis surrounding the stone. There is no dilatation of the RIGHT renal pelvis or ureter. Mild perinephric stranding. Left kidney: Normal. Aorta: Mild atherosclerosis with no aneurysm. Lymphadenopathy: None. Free fluid: None. GI tract: As visualized within the abdomen mild constipation. No obstruction or colitis. Stomach is markedly distended with food products. Abdominal wall: Fat containing umbilical hernia. Visualized osseous structures: Unremarkable. CT/CT abdomen wo con [id number] IMPRESSION: 1. Cholelithiasis. Numerous stones filling the gallbladder lumen. No adjacent inflammation to suggest acute cholecystitis. No common bile duct obstruction. 2. Large RIGHT renal calcification measuring 2.0 x 0.6 cm. Calcification cente red in the pelvis with surrounding mild inflammatory changes but no obstruction . Mild perinephric stranding is also present. 3. No LEFT renal obstruction.
--- NOTE | 2024-10-29 14:20 | ECG_ITS ---
[facility] Test Date: 2024-10-29 Pat Name: Ovidio Isas Department: Room: 271 Gender: Male Manager Generation: : 1960 Requested By: Norberto Lombardi Order Number: [id number] Rodrigo MD: Nilay Boyce M.D. Measurements Intervals [place] Rate: 49 P: 25 DE: 175 QRS: 56 QRSD: 105 T: 243 QT: 474 QTc: 431 Interpretive Statements SINUS BRADYCARDIA MODERATE T-WAVE ABNORMALITY, CONSIDER LATERAL ISCHEMIA [-0.1+ mV T-WAVE IN I/aVL/V5/V6] Compared to ECG 10/29/2024 09:32:43 No significant changes Electronically Signed On 11-03-2024 10:15:37 CDT by Nilay Boyce M.D. [id number] [id number]
[2024-10-29 15:44] LABS: Troponin(5th) Baseline 17 ng/L (0-15)
--- NOTE | 2024-10-29 16:20 | ECG_ITS ---
[facility] Test Date: 2024-10-29 Pat Name: Ovidio Issa Department: Room: 271 Gender: Male Surgical Manager: : 1960 Requested By: Norberto Lombardi Order Number: [id number] Rodrigo MD: Nilay Boyce M.D. Measurements Intervals [place] Rate: 53 P: 39 MT: 173 QRS: 65 QRSD: 113 T: 265 QT: 467 QTc: 440 Interpretive Statements SINUS BRADYCARDIA WITH OCCASIONAL VENTRICULAR PREMATURE COMPLEXES INFERIOR MYOCARDIAL INFARCTION , OF INDETERMINATE AGE [40+ ms Q WAVE AND/OR ST/T ABNORMALITY IN II/aVF] MODERATE T-WAVE ABNORMALITY, CONSIDER LATERAL ISCHEMIA [-0.1+ mV T-WAVE IN I/aVL/V5/V6] Compared to ECG 10/29/2024 14:58:46 Ventricular premature complex(es) now present Myocardial infarct finding now present T-wave abnormality still present Possible ischemia still present Electronically Signed On 11-03-2024 10:39:09 CDT by Nilay Boyce M.D. [email or web address] [id number]
[2024-10-29 17:22] LABS: Troponin 5 2HR 17.28 ng/L (0-15); Troponin 5 2HR Delta 0.28 ABS# (0-10)
--- NOTE | 2024-10-29 17:56 | P.PN_ITS ---
Subjective 2 Subjective: - Patient was examined early this rosana deb he was working with physical therapy, continues to have hemiparesis of right upper right lower extremity, no facial droop, no slurring of his words, no nausea, no vomiting, no choking sensation - But during physical therapy his heart rates drop into the 40s, blood pressures are soft 100s over 60s, he does report feeling dizzy - With the help of physical therapy was moved back into bed, EKG does not show any acute ST-T wave changes, no evidence of bundle branch block, or AV block - Reexamined the afternoon is at be dside, he has more motion of his right arm, does complain some stiffness in the right shoulder, pain in the right shoulder, continues to have significant weakness of right lower extremity, we discussed plans on PT OT, blood pressure management - He does complain of persistent right f lank pain, we discussed renal ultrasound, but will do CT scan abdomen pelvis Vitals/I&O/Wt Last Vital Signs Temp 98.2 F 10/29/24 15:46 Pulse 50 L 10/29/24 15:46 Resp 16 10/29/24 15:46 BP 143/75 10/29/24 15:46 Pulse Ox 94 10/29/24 15:39 O2 Del Method Room Air 10/29/24 15:39 10/29/24 10/29/24 10/29/24 06:59 14:59 22:59 Intake Total 480 / 480 Output Total 300 / 1950 250 / 250 300 / 550 Balance -300 / -1110 230 / 230 -300 / -70 Weight last 48 hrs Weight 103.827 kg Physical Exam 2 Const: COMMON NORMALS: no acute distress and patient oriented x3 Resp: COMMON NORMALS: normal respiratory effort, No retractions, No use of accessory muscles and clear to auscultation bilaterally AUSCULTATION: clear to auscultation bilaterally Cardio: COMMON NORMALS: regular rate, regular rhythm, S1 normal heart sound present and S2 normal heart sound present RATE: regular rate RHYTHM: r egular rhythm HEART SOUNDS: S1 normal heart sound present and S2 normal heart sound present GI: COMMON NORMALS: Normal to inspection, nondistended, normoactive bowel sounds present and non-tender Extremity: COMMON NORMALS: no pedal edema Neuro: COMMON NORMALS: patient oriented x3 OTHER: Right upper and right lower extremity weakness, strength 1 out of 5 upper and lower extremity No facial droop, slurring of his words Psych: COMMON NORMALS: mental status grossly normal Urinary Catheter Management: Minaya: Cath Placed During This Visit: yes Reason for Continuing Indwelling Catheter: Acute Urinary Retention or Obstruction Urinary Catheter Date of Insertion: 10/28/24 Urinary Catheter Time of Insertion: 15:31 Data 10/29/24 02:04 10/29/24 02:04 Micro: Microbiology 10/27/24 14:29 Urine Culture - Final Urine,Clean Catch A&P Assessment and plan (1) Acute CVA (cerebrovascular accident): - Acute CVA - presenting with right upper extremity and lower extremity paresthesias and drift, ataxia and sensory changes - Status post tPA -With persistent right upper and right lower extremity weakness, paresthesias - Aspirin, Plavix as statin intolerance - Intolerant of statin therapy in the past and symptoms were such then with multiple different statins that he does not want to try again - Maintain systolic blood pressure less than 180, diastolic less than 110 - Echocardiogram bubble study - Hemoglobin A1c within normal limits and lipid panel LDL 146, triglycerides 161, cholesterol 212 - PT/OT/ST (2) Hypertension: - Blood pressure control (3) Hematuria: - Follows Dr. Kenney and is scheduled for what sounds like outpatient cystoscopy on November 06 - Resolved today - Empiric coverage with Rocephin - Follow-up pending urine culture - Bladder scan (4) Obstructive sleep apnea: Intolerant of Cpap therapy (5) History of kidney stones: - Repeat renal ultrasound, no acute findings Plan VTE prophylaxis: SCDs currently, has gross hematuria and is status post TNKase so pharmacological DVT prophylaxis is not ordered presently Telemetry: ordered due to acute cva Minaya: Will consider Minaya catheter Line(s): peripheral IVs Disposition plan: Might require half-way placement Code Status: Full Code Due to persistent right flank pain CT scan abdomen pelvis, as patient has complaints of bradycardia continue telemetry monitoring, echo with bubble study, as patient has had recurrent stroke, order hypercoagulable echo, MRI brain PDMP PDMP Reviewed: Not Reviewed Attestations 2 Medical Necessity Statement*: Patient requires hospitalization for acute CVA with right-sided hemiplegia, UTI on Rocephin Diagnoses Acute CVA (cerebrovascular accident) I63.9 Primary hypertension I10 Hypertension type: primary hypertension Gross hematuria R31.0 Hematuria type: gross Obstructive sleep apnea G47.33 History of kidney stones Z87.442
[2024-10-29 19:12] LABS: Homocysteine 14.18 umol/l (0-15)
[2024-10-29] MEDS: enoxaparin 40 mg/0.4 mL Syringe SUBCUT (19:48)
[2024-10-29] MEDS: cefTRIAXone 1,000 mg SDV 1000 MG IVP (19:48)
--- NOTE | 2024-10-29 20:20 | ECG_ITS ---
[facility] Test Date: 2024-10-29 Pat Name: Ovidio Issa Department: Room: 271 Gender: Male [employer] Super[employer]: : [id number] Requested By: Norberto Lombardi Order Number: [id number] Rodrigo MD: Nilay Boyce M.D. Measurements Intervals [place] Rate: 54 P: 49 ME: 171 QRS: 56 QRSD: 107 T: -79 QT: 428 QTc: 408 Interpretive Statements SINUS BRADYCARDIA POSSIBLE INFERIOR MYOCARDIAL INFARCTION , OF INDETERMINATE AGE [30 ms Q WAVE IN II/aVF] MODERATE T-WAVE ABNORMALITY, CONSIDER LATERAL ISCHEMIA [-0.1+ mV T-WAVE IN I/aVL/V5/V6] Compared to ECG 10/29/2024 16:28:13 Ventricular premature complex(es) no longer present Myocardial infarct finding still present T-wave abnormality still present Possible ischemia still present Electronically Signed On 11-03-2024 10:38:39 CDT by Nilay Boyce M.D. [email or web address]
[2024-10-29 22:10] LABS: Troponin 5 6HR 17.15 ng/L (0-15); Troponin 5 6HR Delta 0.15 ng/L (0-12)
[2024-10-30] VITALS (12 sets, daily range): BP systolic 142–169; BP diastolic 71–86; PULSE 53–62; RESP 16–18; TEMP 36.4–37.4; O2SAT 90–94
[2024-10-30 06:01] LABS: Basophils # 0.1 10^3/uL (0.0-0.1); Basophils % 0.5 %; Eosinophils # 0.3 10^3/uL (0.0-0.8); Eosinophils % 2.8 %; Hematocrit 42.4 % (37-53); Lymphocytes # 2.6 10^3/uL (0.8-4.8); Lymphocytes % 23.8 %; Mean Corpuscular HGB Conc 32.8 g/dL (30-55); Mean Corpuscular Volume 91.4 fl (82-101); Mean Platelet Volume 10.5 fL (7.4-10.4); Monocytes # 1.1 10^3/uL (0.2-0.9); Monocytes % 9.8 %; Neutrophils # 6.93 10^3/uL (1.8-7.7); Neutrophils % 62.7 %; Nucleated Red Blood Cells % 0 %; Platelet Count 190 10^3/cmm (157-399); Red Blood Count 4.64 10^6/uL (3.85-5.65); Red Cell Distribution Width 13.1 % (12.1-15.1); White Blood Count 11.03 10^3/uL (3.29-11.43)
[2024-10-30 06:27] LABS: Alanine Aminotransferase 17 U/L (0-41); Albumin Level 3.3 g/dL (3.5-5.2); Alkaline Phosphatase 66 U/L (40-130); Anion Gap 13.1 (5-19); Aspartate Amino Transferase 22 U/L (0-40); Blood Urea Nitrogen 24 mg/dL (8-23); Calcium 8.4 mg/dL (8.5-10.5); Carbon Dioxide 25 mmol/L (22-29); Chloride 104 mmol/L (98-107); Creatinine Clr Calc Pharmacy 95.4317; Globulin 3.4 g/dL (1.3-4.6); Glomerular Filtration Rate 75.7 mL/min (90-130); Glucose 115 mg/dL (65-115); Osmolality Calculated 291 mOsm/kg (285-295); Potassium 4.1 mmol/L (3.5-5.1); Sodium 138 mmol/L (136-145); Total Bilirubin 0.5 mg/dL (0.15-1.2); Total Protein 6.7 g/dL (6.6-8.7)
--- NOTE | 2024-10-30 08:00 | MR_ITS ---
WS: [id number] MRI HEAD WITHOUT CONTRAST TECHNIQUE: Sagittal T1, T2 axial, T2 axial FLAIR, axial and coronal T1 images, axial susceptibility weighted imaging, axial diffusion weighted images, and coronal T2 images were obtained. CLINICAL INFORMATION: cva FINDINGS: Small area of restricted diffusion in the RIGHT medulla extending to the cervical medullary junction compatible with acute ischemia. Small amount of associated edema. No other foci of restricted diffusion. Minimal small vessel changes. Mild parenchymal volume loss. Normal vascular flow voids at the skull base. No extra-axial fluid collections. Paranasal sinuses are well aerated. Mastoid air cells are well aerated. MR/MR head wo con* [id number] IMPRESSION: 1. Small area of acute ischemia involving the RIGHT medulla and cervical medul gio junction. Small amount of associated edema. 2. No other acute findings. Message LEFT for Norberto Lombardi MD at 10/30/2024 2:08 PM.
[2024-10-30] MEDS: clopidogrel 75 mg Tablet PO (09:24)
[2024-10-30] MEDS: sodium chloride 0.9% 1,000 ML 75 ML IV (13:46)
--- NOTE | 2024-10-30 14:17 | PM.PN ---
Subjective Subjective: Patient was seen this morning, he is alert oriented x 3, following all commands, no fevers, chills, no cough, no lightheadedness, dizziness, his right upper extremity weakness is improving, right lower extremity weakness significantly persists, but is able to do plantar and dorsiflexion Vitals/I&O/Wt Last Vital Signs Temp 98.3 F 10/30/24 11:58 Pulse 54 L 10/30/24 11:58 Resp 18 10/30/24 11:58 BP 169/80 10/30/24 11:58 Pulse Ox 94 10/30/24 11:58 O2 Del Method Room Air 10/30/24 11:58 10/29/24 10/30/24 10/30/24 22:59 06:59 14:59 Intake Total 1000 / 1480 1310 / 1310 Output Total 650 / 900 Balance 350 / 580 1310 / 1310 Weight last 48 hrs Weight 108.409 kg Weight 103.827 kg Physical Exam Const: COMMON NORMALS: no acute distress and patient oriented x3 Resp: COMMON NORMALS: normal respiratory effort, No retractions, No use of accessory muscles and clear to auscultation bilaterally AUSCULTATION: clear to auscultation bilaterally Cardio: COMMON NORMALS: regular rate, regular rhythm, S1 normal heart sound present and S2 normal heart sound present RATE: regular rate RHYTHM: regular rhythm HEART SOUNDS: S1 normal heart sound present and S2 normal heart sound present GI: COMMON NORMALS: Normal to inspection, nondistended, normoactive bowel sounds present and non-tender Extremity: COMMON NORMALS: no calf tenderness and no pedal edema Neuro: COMMON NORMALS: patient oriented x3 Psych: COMMON NORMALS: mental status grossly normal Urinary Catheter Management: Minaya: Cath Placed During This Visit: yes Reason for Continuing Indwelling Catheter: Other Urinary Catheter Date of Insertion: 10/28/24 Urinary Catheter Time of Insertion: 15:31 Data 10/30/24 05:15 10/30/24 05:15 Micro: Microbiology 10/27/24 14:29 Urine Culture - Final Urine,Clean Catch A&P Assessment and plan (1) Acute CVA (cerebrovascular accident): - Acute CVA - presenting with right upper extremity and lower extremity paresthesias and drift, ataxia and sensory changes - Status post tPA -With persistent right upper and right lower extremity weakness, paresthesias - Aspirin, Plavix as statin intolerance - Intolerant of statin therapy in the past and symptoms were such then with multiple different statins that he does not want to try again - Maintain systolic blood pressure less than 180, diastolic less than 110 - Echocardiogram bubble study, no shunting - Hemoglobin A1c within normal limits and lipid panel LDL 146, triglycerides 161, cholesterol 212 - PT/OT/ST - MRI brain - Hypercoagulable panel (2) Hypertension: - Blood pressure control (3) Hematuria: - Follows Dr. Kenney and is scheduled for what sounds like outpatient cystoscopy on November 06 - Resolved today - Empiric coverage with Rocephin - Follow-up pending urine culture (4) Obstructive sleep apnea: Intolerant of Cpap therapy (5) History of kidney stones: - Repeat renal ultrasound, no acute findings - CT abdomen CT/CT abdomen wo con [id number] IMPRESSION: 1. Cholelithiasis. Numerous stones filling the gallbladder lumen. No adjacent inflammation to suggest acute cholecystitis. No common bile duct obstruction. 2. Large RIGHT renal calcification measuring 2.0 x 0.6 cm. Calcification centered in the pelvis with surrounding mild inflammatory changes but no obstruction. Mild perinephric stranding is also present. 3. No LEFT renal obstruction. (6) UTI (urinary tract infection): (7) Pyelonephritis: Plan UTI, mild perinephric stranding on the right, possible pyelonephritis, given his right flank pain complaints, continue IV Rocephin VTE prophylaxis: Lovenox Telemetry: ordered due to acute cva Minaya: Minaya catheter placed due to urinary retention Line(s): peripheral IVs Disposition plan: Might require retirement placement Code Status: Full Code Due to persistent right flank pain CT scan abdomen pelvis, as patient has complaints of bradycardia continue telemetry monitoring, echo with bubble study, as patient has had recurrent stroke, order hypercoagulable echo, MRI brain PDMP PDMP Reviewed: Not Reviewed Attestations Medical Necessity Statement*: Patient requires hospitalization for acute CVA, right-sided weakness Diagnoses Acute CVA (cerebrovascular accident) I63.9 Primary hypertension I10 Hypertension type: primary hypertension Gross hematuria R31.0 Hematuria type: gross Obstructive sleep apnea G47.33 History of kidney stones Z87.442 UTI (urinary tract infection) N39.0 Pyelonephritis N12
[2024-10-30] MEDS: aspirin 81 mg EC Tablet PO (14:28)
[2024-10-30] MEDS: chlorthalidone 25 mg Tablet PO (14:28)
[2024-10-30 14:53] LABS: COMPLEMENT COMPONENT C3C 140 mg/dL (82-185); COMPLEMENT COMPONENT C4C 17 mg/dL (15-53)
[2024-10-30 15:05] LABS: COMPLEMENT, TOTAL (CH50) >60 U/mL (31-60)
--- NOTE | 2024-10-30 17:09 | XRR_ITS ---
PROCEDURE INFORMATION: Exam: XR Right Shoulder Exam date and time: 10/30/2024 7:53 PM Age: 64 years old Clinical indication: Pain; Shoulder; Right TECHNIQUE: Imaging protocol: Radiologic exam of the right shoulder. Views: 2 or more views. COMPARISON: CR XR chest 1V portable [id number] 10/29/2024 9:58 AM FINDINGS: Bones/joints: Normal. No acute displaced fracture or dislocation. Soft tissues: Normal. XR/XR shoulder RT min 2V* [id number] IMPRESSION: No acute findings.
[2024-10-30] MEDS: morphine 4 mg/mL SDV 1 mL 2 MG IVP (18:18)
[2024-10-30] MEDS: enoxaparin 40 mg/0.4 mL Syringe SUBCUT (18:18)
[2024-10-30] MEDS: cefTRIAXone 1,000 mg SDV 1000 MG IVP (21:10)
[2024-10-31] VITALS (9 sets, daily range): BP systolic 130–179; BP diastolic 60–99; PULSE 57–64; RESP 15–17; TEMP 36.8–37.3; O2SAT 90–94; BMI 32.4
[2024-10-31 03:30] LABS: CENTROMERE B ANTIBODY <1.0 NEG AI (<1.0 NEG); JO-1 ANTIBODY <1.0 NEG AI (<1.0 NEG); RNP ANTIBODY <1.0 NEG AI (<1.0 NEG); SCL-70 ANTIBODY <1.0 NEG AI (<1.0 NEG); SJOGREN'S ANTIBODY (SS-A) <1.0 NEG AI (<1.0 NEG); SM ANTIBODY <1.0 NEG AI (<1.0 NEG); SS-B <1.0 NEG AI (<1.0 NEG)
[2024-10-31 05:46] LABS: Basophils % 0.3 %; Eosinophils # 0.3 10^3/uL (0.0-0.8); Eosinophils % 2.6 %; Lymphocytes # 2.3 10^3/uL (0.8-4.8); Lymphocytes % 17.6 %; Mean Corpuscular Hemoglobin 29.9 pg (27-33); Mean Corpuscular Volume 90.5 fl (82-101); Mean Platelet Volume 10.8 fL (7.4-10.4); Monocytes # 1.4 10^3/uL (0.2-0.9); Neutrophils # 8.78 10^3/uL (1.8-7.7); Nucleated Red Blood Cells % 0 %; Platelet Count 198 10^3/cmm (157-399); Red Blood Count 4.75 10^6/uL (3.85-5.65); Red Cell Distribution Width 12.8 % (12.1-15.1); White Blood Count 12.91 10^3/uL (3.29-11.43)
[2024-10-31 06:05] LABS: Alanine Aminotransferase 26 U/L (0-41); Albumin Level 3.3 g/dL (3.5-5.2); Alkaline Phosphatase 80 U/L (40-130); Aspartate Amino Transferase 27 U/L (0-40); Blood Urea Nitrogen 21 mg/dL (8-23); Calcium 8.5 mg/dL (8.5-10.5); Carbon Dioxide 24 mmol/L (22-29); Chloride 102 mmol/L (98-107); Creatinine Clr Calc Pharmacy 108.2414; Globulin 3.5 g/dL (1.3-4.6); Glomerular Filtration Rate 85.5 mL/min (90-130); Glucose 106 mg/dL (65-115); Osmolality Calculated 287 mOsm/kg (285-295); Sodium 137 mmol/L (136-145); Total Bilirubin 0.9 mg/dL (0.15-1.2); Total Protein 6.8 g/dL (6.6-8.7)
[2024-10-31 06:08] LABS: Anion Gap 15.2 (5-19); Potassium 4.2 mmol/L (3.5-5.1)
[2024-10-31] MEDS: chlorthalidone 25 mg Tablet PO (08:49)
[2024-10-31] MEDS: clopidogrel 75 mg Tablet PO (08:49)
[2024-10-31] MEDS: amlodipine 5 mg Tablet PO (11:01)
[2024-10-31] MEDS: tizanidine 4 mg Tablet 2 MG PO (11:01)
[2024-10-31] MEDS: polyethylene glycol 3350 Pkt 17 gm PO (11:02)
--- NOTE | 2024-10-31 13:17 | P.PN_ITS ---
Subjective 2 Subjective: Patient was seen this morning, currently alert oriented x 3, following all commands, no choking, no coughing, no blurry vision, his right upper and right lower extremity weakness persists, but he does believe that he is making progress, his right flank pain is improving Vitals/I&O/Wt Last Vital Signs Temp 98.6 F 10/31/24 12:00 Pulse 61 10/31/24 12:00 Resp 17 10/31/24 12:00 BP 154/86 10/31/24 12:00 Pulse Ox 92 10/31/24 12:00 O2 Del Method Room Air 10/31/24 12:00 10/30/24 10/31/24 10/31/24 22:59 06:59 14:59 Intake Total 150 / 1460 480 / 480 Output Total 1100 / 1100 1450 / 2550 1000 / 1000 Balance -950 / 360 -1450 / -1090 -520 / -520 Weight last 48 hrs Weight 108.409 kg Weight 108.409 kg Physical Exam 2 Const: COMMON NORMALS: no acute distress and patient oriented x3 Eye: COMMON NORMALS: Equal, round and reactive pupils present and EOMs intact bilaterally PUPIL: Yes Equal, round and reactive pupils present Neck/C-Spine: COMMON NORMALS: full ROM Resp: COMMON NORMALS: normal respiratory effort, No retractions, No use of accessory muscles and clear to auscultation bilaterally AUSCULTATION: clear to auscultation bilaterally Cardio: COMMON NORMALS: regular rate, regular rhythm, S1 normal heart sound present and S2 normal heart sound present RATE: regular rate RHYTHM: r egular rhythm HEART SOUNDS: S1 normal heart sound present and S2 normal heart sound present GI: COMMON NORMALS: Normal to inspection, nondistended, normoactive bowel sounds present and non-tender Extremity: COMMON NORMALS: no pedal edema Neuro: COMMON NORMALS: patient oriented x3, CN's II-XII intact bilaterally and moves all extremities OTHER: Right upper extremity strength, 2 out of 5, right lower extremity strength 2 out of 5, Psych: COMMON NORMALS: mental status grossly normal Urinary Catheter Management: Minaya: Cath Placed During This Visit: yes Reason for Continuing Indwelling Catheter: Other Urinary Catheter Date of Insertion: 10/28/24 Urinary Catheter Time of Insertion: 15:31 Data 10/31/24 05:01 10/31/24 05:01 A&P Assessment and plan (1) Acute CVA (cerebrovascular accident): - Acute CVA - presenting with right upper extremity and lower extremity paresthesias and drift, ataxia and sensory changes - Status post tPA -With persistent right upper and right lower extremity weakness, paresthesias MRI brain MR/MR head wo con* [id number] IMPRESSION: 1. Small area of acute ischemia involving the RIGHT medulla and cervical medullary junction. Small amount of associated edema. 2. No other acute findings. - Aspirin, Plavix as statin intolerance - Intolerant of statin therapy in the past and symptoms were such then with multiple different statins that he does not want to try again - Added chlorthalidone, -Added Norvasc - Echocardiogram bubble study, no shunting - Hemoglobin A1c within normal limits and lipid panel LDL 146, triglycerides 161, cholesterol 212 - PT/OT/ST - MRI brain - Hypercoagulable panel (2) Hypertension: - Blood pressure control (3) Hematuria: - Follows Dr. Kenney and is scheduled for what sounds like outpatient cystoscopy on November 06 - Resolved today, will remove Minaya catheter - Empiric coverage with Rocephin - Follow-up pending urine culture (4) Obstructive sleep apnea: Intolerant of Cpap therapy (5) History of kidney stones: - Repeat renal ultrasound, no acute findings - CT abdomen CT/CT abdomen wo con [id number] IMPRESSION: 1. Cholelithiasis. Numerous stones filling the gallbladder lumen. No adjacent inflammation to suggest acute cholecystitis. No common bile duct obstruction. 2. Large RIGHT renal calcification measuring 2.0 x 0.6 cm. Calcification centered in the pelvis with surrounding mild inflammatory changes but no obstruction. Mild perinephric stranding is also present. 3. No LEFT renal obstruction. (6) UTI (urinary tract infection): (7) Pyelonephritis: , Continue Rocephin Plan UTI, mild perinephric stranding on the right, possible pyelonephritis, given his right flank pain complaints, continue IV Rocephin Right shoulder pain, x-ray within normal limits, continue hydrocodone, as needed for pain VTE prophylaxis: Lovenox Telemetry: ordered due to acute cva Minaya: Minaya catheter placed due to urinary retention Line(s): peripheral IVs Disposition plan: Might require fpc placement Code Status: Full Code Plan for today PT OT PDMP PDMP Reviewed: Not Reviewed Attestations 2 Medical Necessity Statement*: Patient requires hospitalization for acute CVA Diagnoses Acute CVA (cerebrovascular accident) I63.9 Primary hypertension I10 Hypertension type: primary hypertension Gross hematuria R31.0 Hematuria type: gross Obstructive sleep apnea G47.33 History of kidney stones Z87.442 UTI (urinary tract infection) N39.0 Pyelonephritis N12
[2024-10-31] MEDS: aspirin 81 mg EC Tablet PO (15:47)
[2024-10-31] MEDS: enoxaparin 40 mg/0.4 mL Syringe SUBCUT (18:33)
[2024-10-31] MEDS: cefTRIAXone 1,000 mg SDV 1000 MG IVP (20:03)
[2024-11-01] MEDS: tizanidine 4 mg Tablet 2 MG PO ×2 (00:34→19:11)
[2024-11-01 04:00] VITALS: BP 155/78; PULSE 59; RESP 14; TEMP 36.6; O2SAT 92
[2024-11-01 08:00] VITALS: BP 155/78; BP 87/54; PULSE 59; PULSE 61; RESP 14; RESP 20; TEMP 36.4; TEMP 36.6; O2SAT 91
[2024-11-01] MEDS: chlorthalidone 25 mg Tablet PO (10:11)
[2024-11-01] MEDS: clopidogrel 75 mg Tablet PO (10:11)
[2024-11-01] MEDS: HYDROcodone-acetaminophen 5-325 mg Tablet 1 TAB PO ×2 (10:11→16:58)
[2024-11-01] MEDS: polyethylene glycol 3350 Pkt 17 gm PO (10:12)
[2024-11-01] MEDS: lactulose oral liq 20 gm/30 mL UDC PO (10:12)
[2024-11-01] MEDS: amlodipine 5 mg Tablet PO (10:13)
[2024-11-01 12:00] VITALS: BP 128/74; PULSE 56; RESP 18; TEMP 36.8; O2SAT 92
--- NOTE | 2024-11-01 14:02 | P.PN_ITS ---
Subjective 2 Subjective: Patient was seen this morning, denies any fevers, no chills, no cough, no lightheadedness, no dizziness, his right upper right lower extremity weakness is improving, no choking episodes, no coughing episodes Vitals/I&O/Wt Last Vital Signs Temp 97.6 F 11/01/24 08:00 Pulse 61 11/01/24 08:00 Resp 20 H 11/01/24 08:00 BP 87/54 11/01/24 08:00 Pulse Ox 91 11/01/24 08:00 O2 Del Method Room Air 11/01/24 08:00 10/31/24 11/01/24 11/01/24 22:59 06:59 14:59 Intake Total 720 / 1200 240 / 240 Output Total 650 / 1650 1200 / 2850 150 / 150 Balance 70 / -450 -1200 / -1650 90 / 90 Weight last 48 hrs Weight 108.409 kg Physical Exam 2 Const: COMMON NORMALS: no acute distress and patient oriented x3 Resp: COMMON NORMALS: normal respiratory effort, No retractions, No use of accessory muscles and clear to auscultation bilaterally AUSCULTATION: clear to auscultation bilaterally Cardio: COMMON NORMALS: regular rate, regular rhythm, S1 normal heart sound present and S2 normal heart sound present RATE: regular rate RHYTHM: r egular rhythm HEART SOUNDS: S1 normal heart sound present and S2 normal heart sound present GI: COMMON NORMALS: Normal to inspection, nondistended, normoactive bowel sounds present and non-tender Extremity: COMMON NORMALS: no pedal edema Neuro: COMMON NORMALS: patient oriented x3 Psych: COMMON NORMALS: mental status grossly normal Urinary Catheter Management: Minaya: Cath Placed During This Visit: yes, but has since been removed by the nurse Reason for Continuing Indwelling Catheter: Other Urinary Catheter Date of Insertion: 10/28/24 Urinary Catheter Time of Insertion: 15:31 Date Urinary Catheter Removed: 10/31/24 Time Urinary Catheter Discontinued: 06:00 Data 10/31/24 05:01 10/31/24 05:01 A&P Assessment and plan (1) Acute CVA (cerebrovascular accident): - Acute CVA MRI brain MR/MR head wo con* [id number] IMPRESSION: 1. Small area of acute ischemia involving the RIGHT medulla and cervical medullary junction. Small amount of associated edema. 2. No other acute findings. - presenting with right upper extremity and lower extremity paresthesias and drift, ataxia and sensory changes - Status post tPA -With persistent right upper and right lower extremity weakness, paresthesias Plan - Aspirin, Plavix as statin intolerance - Intolerant of statin therapy in the past and symptoms were such then with multiple different statins that he does not want to try again - Added chlorthalidone, -Added Norvasc - Echocardiogram bubble study, no shunting - Hemoglobin A1c within normal limits and lipid panel LDL 146, triglycerides 161, cholesterol 212 - PT/OT/ST - Hypercoagulable panel (2) Hypertension: - Blood pressure control (3) Hematuria: - Follows Dr. Kenney and is scheduled for what sounds like outpatient cystoscopy on November 06 - Resolved today, will remove Minaya catheter - Empiric coverage with Rocephin - Follow-up pending urine culture (4) Obstructive sleep apnea: Intolerant of Cpap therapy (5) History of kidney stones: - Repeat renal ultrasound, no acute findings - CT abdomen CT/CT abdomen wo con [id number] IMPRESSION: 1. Cholelithiasis. Numerous stones filling the gallbladder lumen. No adjacent inflammation to suggest acute cholecystitis. No common bile duct obstruction. 2. Large RIGHT renal calcification measuring 2.0 x 0.6 cm. Calcification centered in the pelvis with surrounding mild inflammatory changes but no obstruction. Mild perinephric stranding is also present. 3. No LEFT renal obstruction. (6) UTI (urinary tract infection): (7) Pyelonephritis: , Continue Rocephin Plan UTI, mild perinephric stranding on the right, possible pyelonephritis, given his right flank pain complaints, continue IV Rocephin for at least 7 days Right shoulder pain, x-ray within normal limits, continue hydrocodone, as needed for pain VTE prophylaxis: Lovenox Telemetry: ordered due to acute cva Minaya: Minaya catheter placed due to urinary retention Line(s): peripheral IVs Disposition plan: Might require shelter placement Code Status: Full Code Plan for today PT OT PDMP PDMP Reviewed: Not Reviewed Attestations 2 Medical Necessity Statement*: Patient requires hospitalization for acute CVA Diagnoses Acute CVA (cerebrovascular accident) I63.9 Primary hypertension I10 Hypertension type: primary hypertension Gross hematuria R31.0 Hematuria type: gross Obstructive sleep apnea G47.33 History of kidney stones Z87.442 UTI (urinary tract infection) N39.0 Pyelonephritis N12
[2024-11-01] MEDS: aspirin 81 mg EC Tablet PO (15:03)
[2024-11-01 16:00] VITALS: BP 128/75; PULSE 62; RESP 18; TEMP 36.7; O2SAT 96
[2024-11-01] MEDS: enoxaparin 40 mg/0.4 mL Syringe SUBCUT (19:07)
[2024-11-01] MEDS: mineral oil ENEMA 133 mL PR (21:11)
[2024-11-01] MEDS: cefTRIAXone 1,000 mg SDV 1000 MG IVP (21:11)
[2024-11-01 21:15] VITALS: BP 122/64; PULSE 60; RESP 15; TEMP 36.8; O2SAT 90
--- NOTE | 2024-11-01 21:56 | PC.NURSE ---
Patient was bladder scanned by this nurse. Bladder Scan showed 832ml. Physician was notified by this nurse and gave orders to straight catheterize with a residual of greater than 300ml. Patient was straight catheterized and collected 550 ml. Post residual via bladder scan was 135ml. Patient was educated on the straight cath order and addressed all questions at this time.
[2024-11-02] MEDS: HYDROcodone-acetaminophen 5-325 mg Tablet 1 TAB PO ×3 (00:03→21:57)
[2024-11-02 00:14] VITALS: BP 132/74; PULSE 63; RESP 15; TEMP 36.6; O2SAT 92
[2024-11-02 03:49] LABS: Anti-Cardiolipin IgA AB <2.0 APL-U/mL
[2024-11-02 05:32] VITALS: BP 131/75; PULSE 64; RESP 17; TEMP 36.5; O2SAT 91
--- NOTE | 2024-11-02 06:29 | PC.NURSE ---
Patient still unable to empty his bladder during this shift. This nurse scanned patients bladder and showed 704ml. Patient was straight catheterized per physicians previous order and obtained 750ml. Post void bladder scan was initiated and showed 7ml of urine.
[2024-11-02 07:24] VITALS: BP 121/67; PULSE 54; RESP 16; TEMP 36.6; O2SAT 91
[2024-11-02] MEDS: polyethylene glycol 3350 Pkt 17 gm PO (08:26)
[2024-11-02] MEDS: clopidogrel 75 mg Tablet PO (08:27)
[2024-11-02] MEDS: chlorthalidone 25 mg Tablet PO (08:27)
[2024-11-02] MEDS: amlodipine 5 mg Tablet PO (08:27)
[2024-11-02] MEDS: sennosides-docusate Tablet 1 TAB PO ×2 (09:26→17:21)
[2024-11-02] MEDS: lactulose oral liq 20 gm/30 mL UDC PO (09:26)
[2024-11-02 11:35] VITALS: BP 143/82; PULSE 52; RESP 16; TEMP 36.6; O2SAT 91
[2024-11-02] MEDS: aspirin 81 mg EC Tablet PO (14:02)
--- NOTE | 2024-11-02 14:22 | P.PN_ITS ---
Subjective 2 Subjective: Patient was seen this morning, reports feeling constipated and abdominal distention, he has not had a bowel movement is passing gas, does report right sided sciatica, it is causing significant pain, he is reporting paresthesias in his right leg, is frustrated that his right lower extremity weakness persist more today, he had significant improvement yesterday Vitals/I&O/Wt Last Vital Signs Temp 98 F 11/02/24 11:35 Pulse 52 L 11/02/24 11:35 Resp 16 11/02/24 11:35 BP 143/82 11/02/24 11:35 Pulse Ox 91 11/02/24 11:35 O2 Del Method Room Air 11/02/24 11:35 11/01/24 11/02/24 11/02/24 22:59 06:59 14:59 Intake Total 240 / 840 400 / 1240 960 / 960 Output Total 500 / 950 1601 / 2551 250 / 250 Balance -260 / -110 -1201 / -1311 710 / 710 Weight last 48 hrs Weight 108.409 kg Physical Exam 2 Const: COMMON NORMALS: no acute distress and patient oriented x3 Eye: OTHER: Right eye pupils equal round reactive to light, extraocular movements intact, does have conjunctival injection, crusting all along right eyelid Resp: COMMON NORMALS: normal respiratory effort, No retractions, No use of accessory muscles and clear to auscultation bilaterally AUSCULTATION: clear to auscultation bilaterally Cardio: COMMON NORMALS: regular rate, regular rhythm, S1 normal heart sound present and S2 normal heart sound present RATE: regular rate RHYTHM: r egular rhythm HEART SOUNDS: S1 normal heart sound present and S2 normal heart sound present GI: COMMON NORMALS: Normal to inspection, nondistended, normoactive bowel sounds present and non-tender Extremity: COMMON NORMALS: no pedal edema Neuro: COMMON NORMALS: patient oriented x3 OTHER: Right upper extremity strength, 3 out of 5, improving Right lower extremity strength, 1 out of 5, Right eye droopiness, pupils equal round reactive to light, no facial droop, no slurring of his words Psych: COMMON NORMALS: mental status grossly normal Urinary Catheter Management: Minaya: Cath Placed During This Visit: yes, but has since been removed by the nurse Reason for Continuing Indwelling Catheter: Other Urinary Catheter Date of Insertion: 10/28/24 Urinary Catheter Time of Insertion: 15:31 Date Urinary Catheter Removed: 10/31/24 Time Urinary Catheter Discontinued: 06:00 Data 10/31/24 05:01 10/31/24 05:01 A&P Assessment and plan (1) Acute CVA (cerebrovascular accident): - Acute CVA MRI brain MR/MR head wo con* [id number] IMPRESSION: 1. Small area of acute ischemia involving the RIGHT medulla and cervical medullary junction. Small amount of associated edema. 2. No other acute findings. - presenting with right upper extremity and lower extremity paresthesias and drift, ataxia and sensory changes - Status post tPA -With persistent right upper and right lower extremity weakness, paresthesias Plan - Aspirin, Plavix as statin intolerance - Intolerant of statin therapy in the past and symptoms were such then with multiple different statins that he does not want to try again - Added chlorthalidone, -Added Norvasc - Echocardiogram bubble study, no shunting - Hemoglobin A1c within normal limits and lipid panel LDL 146, triglycerides 161, cholesterol 212 - PT/OT/ST - Hypercoagulable panel (2) Hypertension: - Blood pressure control (3) Hematuria: - Follows Dr. Kenney and is scheduled for what sounds like outpatient cystoscopy on November 06 - Resolved today, will remove Minaya catheter - Empiric coverage with Rocephin - Follow-up pending urine culture (4) Obstructive sleep apnea: Intolerant of Cpap therapy (5) History of kidney stones: - Repeat renal ultrasound, no acute findings - CT abdomen CT/CT abdomen wo con [id number] IMPRESSION: 1. Cholelithiasis. Numerous stones filling the gallbladder lumen. No adjacent inflammation to suggest acute cholecystitis. No common bile duct obstruction. 2. Large RIGHT renal calcification measuring 2.0 x 0.6 cm. Calcification centered in the pelvis with surrounding mild inflammatory changes but no obstruction. Mild perinephric stranding is also present. 3. No LEFT renal obstruction. (6) UTI (urinary tract infection): (7) Pyelonephritis: , Continue Rocephin Plan UTI, mild perinephric stranding on the right, possible pyelonephritis, given his right flank pain complaints, continue IV Rocephin for at least 7 days Right shoulder pain, x-ray within normal limits, continue hydrocodone, as needed for pain Constipation, bowel regimen VTE prophylaxis: Lovenox Telemetry: ordered due to acute cva Minaya: Minaya catheter placed due to urinary retention Line(s): peripheral IVs Disposition plan: Might require m[facility] placement Code Status: Full Code Plan for today PT OT PDMP PDMP Reviewed: Not Reviewed Attestations 2 Medical Necessity Statement*: Patient requires hospitalization for acute CVA, UTI, pyelonephritis Diagnoses Acute CVA (cerebrovascular accident) I63.9 Primary hypertension I10 Hypertension type: primary hypertension Gross hematuria R31.0 Hematuria type: gross Obstructive sleep apnea G47.33 History of kidney stones Z87.442 UTI (urinary tract infection) N39.0 Pyelonephritis N12
--- NOTE | 2024-11-02 14:24 | XRR_ITS ---
PROCEDURE INFORMATION: Exam: XR Abdomen Exam date and time: 11/02/2024 2:34 PM Age: 64 years old Clinical indication: Constipation; Abdominal pain/distention; Recent CVA TECHNIQUE: Imaging protocol: Radiologic exam of the abdomen. Views: Frontal supine view of the abdomen. 1 View. COMPARISON: CT abdomen con [id number] 10/29/2024 2:35 PM FINDINGS: Gastrointestinal tract: Nonobstructive bowel gas pattern of the small bowel. Large amount of retained stool in the colon related to constipation. Moderately sized rectal stool ball. Bones/joints: The osseous structures demonstrate degenerative changes without evidence of obvious acute abnormality. XR/XR KUB portable [id number] IMPRESSION: As above.
[2024-11-02] MEDS: magnesium citrate Btl 296 mL 150 ML PO (15:35)
[2024-11-02 15:49] VITALS: BP 117/67; PULSE 64; RESP 17; TEMP 37.1; O2SAT 91
[2024-11-02] MEDS: erythromycin Op Oint 1 gm 1 APPLIC EYE-RIGHT ×2 (17:21→20:51)
[2024-11-02] MEDS: enoxaparin 40 mg/0.4 mL Syringe SUBCUT (17:22)
[2024-11-02] MEDS: cefTRIAXone 1,000 mg SDV 1000 MG IVP (20:50)
[2024-11-02 21:14] VITALS: BP 132/72; PULSE 65; RESP 18; TEMP 36.6; O2SAT 95
[2024-11-02] MEDS: tizanidine 4 mg Tablet 2 MG PO (21:57)
[2024-11-03] VITALS (7 sets, daily range): BP systolic 116–163; BP diastolic 64–77; PULSE 51–74; RESP 16–18; TEMP 36.5–36.8; O2SAT 90–95
--- NOTE | 2024-11-03 04:10 | PC.NURSE ---
Patient unable to void this morning. Patient was bladder scanned and showed >670ml. Straight cath was completed per doctors order, and 900ml was collected. Post void residual/ bladder scan was 4ml.
[2024-11-03] MEDS: erythromycin Op Oint 1 gm 1 APPLIC EYE-RIGHT ×4 (08:46→20:24)
[2024-11-03] MEDS: clopidogrel 75 mg Tablet PO (08:46)
[2024-11-03] MEDS: chlorthalidone 25 mg Tablet PO (08:47)
[2024-11-03] MEDS: amlodipine 5 mg Tablet PO (08:47)
[2024-11-03] MEDS: polyethylene glycol 3350 Pkt 17 gm PO (08:50)
[2024-11-03] MEDS: sennosides-docusate Tablet 1 TAB PO ×2 (08:50→17:44)
[2024-11-03] MEDS: lactulose oral liq 20 gm/30 mL UDC PO (08:50)
--- NOTE | 2024-11-03 11:59 | P.PN_ITS ---
Subjective 2 Subjective: Patient was seen this morning, is alert oriented x 3, following commands, no fevers, chills, no cough, no lightheadedness, dizziness he had a large bowel movement yesterday and he feels significantly better, Vitals/I&O/Wt Last Vital Signs Temp 97.7 F 11/03/24 11:21 Pulse 58 L 11/03/24 11:21 Resp 17 11/03/24 11:21 BP 163/77 11/03/24 11:21 Pulse Ox 92 11/03/24 11:21 O2 Del Method Room Air 11/03/24 11:21 11/02/24 11/03/24 11/03/24 22:59 06:59 14:59 Intake Total 480 / 1440 480 / 480 Output Total 350 / 1300 1300 / 2600 Balance 130 / 140 -1300 / -1160 480 / 480 Weight last 48 hrs Weight 108.522 kg Weight 108.409 kg Physical Exam 2 Const: COMMON NORMALS: no acute distress and patient oriented x3 Resp: COMMON NORMALS: normal respiratory effort, No retractions, No use of accessory muscles and clear to auscultation bilaterally AUSCULTATION: clear to auscultation bilaterally Cardio: COMMON NORMALS: regular rate, regular rhythm, S1 normal heart sound present and S2 normal heart sound present RATE: regular rate RHYTHM: r egular rhythm HEART SOUNDS: S1 normal heart sound present and S2 normal heart sound present GI: COMMON NORMALS: Normal to inspection, nondistended, normoactive bowel sounds present and non-tender Extremity: COMMON NORMALS: no calf tenderness and no pedal edema Neuro: COMMON NORMALS: patient oriented x3 OTHER: Right upper, right lower extremity weakness persist Psych: COMMON NORMALS: mental status grossly normal Urinary Catheter Management: Minaya: Cath Placed During This Visit: yes, but has since been removed by the nurse Reason for Continuing Indwelling Catheter: Other Urinary Catheter Date of Insertion: 10/28/24 Urinary Catheter Time of Insertion: 15:31 Date Urinary Catheter Removed: 10/31/24 Time Urinary Catheter Discontinued: 06:00 Data 10/31/24 05:01 10/31/24 05:01 A&P Assessment and plan (1) Acute CVA (cerebrovascular accident): - Acute CVA MRI brain MR/MR head wo con* [id number] IMPRESSION: 1. Small area of acute ischemia involving the RIGHT medulla and cervical medullary junction. Small amount of associated edema. 2. No other acute findings. - presenting with right upper extremity and lower extremity paresthesias and drift, ataxia and sensory changes - Status post tPA -With persistent right upper and right lower extremity weakness, paresthesias Plan - Aspirin, Plavix as statin intolerance - Intolerant of statin therapy in the past and symptoms were such then with multiple different statins that he does not want to try again - Added chlorthalidone, -Added Norvasc - Echocardiogram bubble study, no shunting - Hemoglobin A1c within normal limits and lipid panel LDL 146, triglycerides 161, cholesterol 212 - PT/OT/ST - Hypercoagulable panel (2) Hypertension: - Blood pressure control (3) Hematuria: - Follows Dr. Kenney and is scheduled for what sounds like outpatient cystoscopy on November 06 - Resolved today, will remove Minaya catheter - Empiric coverage with Rocephin - Follow-up pending urine culture (4) Obstructive sleep apnea: Intolerant of Cpap therapy (5) History of kidney stones: - Repeat renal ultrasound, no acute findings - CT abdomen CT/CT abdomen wo con [id number] IMPRESSION: 1. Cholelithiasis. Numerous stones filling the gallbladder lumen. No adjacent inflammation to suggest acute cholecystitis. No common bile duct obstruction. 2. Large RIGHT renal calcification measuring 2.0 x 0.6 cm. Calcification centered in the pelvis with surrounding mild inflammatory changes but no obstruction. Mild perinephric stranding is also present. 3. No LEFT renal obstruction. (6) UTI (urinary tract infection): (7) Pyelonephritis: , Continue Rocephin Plan UTI, mild perinephric stranding on the right, possible pyelonephritis, given his right flank pain complaints, continue IV Rocephin for at least 7 days Right shoulder pain, x-ray within normal limits, continue hydrocodone, as needed for pain Constipation, bowel regimen VTE prophylaxis: Lovenox Telemetry: ordered due to acute cva Minaya: Minaya catheter placed due to urinary retention Line(s): peripheral IVs Disposition plan: Might require shelter placement Code Status: Full Code Plan for today PT OT PDMP PDMP Reviewed: Not Reviewed Attestations 2 Medical Necessity Statement*: Patient requires hospitalization for acute CVA, pyelonephritis Diagnoses Acute CVA (cerebrovascular accident) I63.9 Primary hypertension I10 Hypertension type: primary hypertension Gross hematuria R31.0 Hematuria type: gross Obstructive sleep apnea G47.33 History of kidney stones Z87.442 UTI (urinary tract infection) N39.0 Pyelonephritis N12
[2024-11-03] MEDS: aspirin 81 mg EC Tablet PO (13:44)
[2024-11-03] MEDS: HYDROcodone-acetaminophen 5-325 mg Tablet 1 TAB PO ×2 (13:44→22:36)
[2024-11-03 14:59] LABS: ANA PATTERN Nuclear, Homogeneous; ANA SCREEN, IFA POSITIVE (NEGATIVE)
[2024-11-03] MEDS: enoxaparin 40 mg/0.4 mL Syringe SUBCUT (17:44)
[2024-11-03 20:19] LABS: PROTEIN S, ACTIVITY 92 % normal (70-150)
[2024-11-03] MEDS: cefTRIAXone 1,000 mg SDV 1000 MG IVP (20:24)
[2024-11-03 20:49] LABS: PROTEIN C, ACTIVITY 139 % normal (70-180)
[2024-11-03] MEDS: tizanidine 4 mg Tablet 2 MG PO (22:36)
[2024-11-04 03:55] LABS: THYROID PEROXIDASE ANTIBODIES 294 IU/mL (<9)
[2024-11-04 04:19] VITALS: BP 124/60; PULSE 70; RESP 18; TEMP 36.6; O2SAT 95
[2024-11-04] MEDS: sennosides-docusate Tablet 1 TAB PO ×2 (08:59→17:12)
[2024-11-04] MEDS: clopidogrel 75 mg Tablet PO (08:59)
[2024-11-04] MEDS: erythromycin Op Oint 1 gm 1 APPLIC EYE-RIGHT ×3 (08:59→17:12)
[2024-11-04] MEDS: amlodipine 5 mg Tablet PO (08:59)
[2024-11-04] MEDS: chlorthalidone 25 mg Tablet PO (08:59)
[2024-11-04] MEDS: polyethylene glycol 3350 Pkt 17 gm PO (08:59)
[2024-11-04 09:06] VITALS: BP 122/71; PULSE 62; RESP 18
[2024-11-04 11:33] VITALS: BP 122/71; PULSE 62; RESP 18; TEMP 36.6; O2SAT 95
--- NOTE | 2024-11-04 11:36 | P.DS_ITS ---
Discharge Providers Date of Admission: 10/27/24 13:39 Date of Discharge: November 04, 2024 Attending Provider at Admission: Misa Garcia MD Attending Provider at Discharge: Norberto Lombardi MD Primary Care Provider: Sylvain Squires Diagnoses at Discharge Discharge Diagnosis (1) Acute CVA (cerebrovascular accident): Status: Acute (2) Hypertension: Status: Chronic Qualifiers: Hypertension type: primary hypertension Qualified Code(s): I10 - Essential (primary) hypertension (3) Hematuria: Status: Acute Qualifiers: Hematuria type: gross Qualified Code(s): R31.0 - Gross hematuria (4) Obstructive sleep apnea: Status: Chronic (5) History of kidney stones: Status: Chronic (6) UTI (urinary tract infection): Status: Acute (7) Pyelonephritis: Status: Acute Reason for Visit Reason for Visit: arm numbness Hospital Course Hospital Course This is a 64-year-old male, history of CVA, history of hypertension, who presents [facility] for right sided weakness, NIH stroke scale 7, within tPA window, received tPA, nephrology consulted, patient was monitored as inpatient Patient was admitted to [facility] Head CT CT/CT head thrombolytic [id number] IMPRESSION: 1. No acute intracranial hemorrhage or edema. 2. Mild small vessel changes. Tiny lacunar infarct in the RIGHT internal capsule. CTA head and neck CT/CT angio headneck* [id number] IMPRESSION: 1. No significant cervical carotid artery stenosis. Mild plaque and intimal thickening. 2. Intact vertebral arteries. 3. Paucity of vessels distal M2/M3 middle cerebral artery territory on the LEFT. No identifiable thrombus. 4. No additional areas of stenosis or aneurysm. MRI brain MR/MR head wo con* [id number] IMPRESSION: 1. Small area of acute ischemia involving the RIGHT medulla and cervical medullary junction. Small amount of associated edema. 2. No other acute findings. 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 - Discussed with the patient and in detail, they voiced understanding, all questions answer - Was managed on aspirin, Plavix, - Patient has a statin allergy, declined statins, understands morbidity and mortality, voices understanding, all questions answered, declined -Cardiac echocardiogram no interatrial shunting -Patient continued to have right upper and right lower extremity weakness associated with CVA, received fluids, PT OT as inpatient -On discharge continues to have right upper extremity weakness, right lower extremity weakness, trouble coordinating, no facial droop, slurring his words, does have drooping of his right eyelid, but overall is improving -Unfortunately patient does not have insurance, so placing him to a [facility] facility could not be done, and patient could not get home physical therapy -Will be discharged home with home physical therapy regimen - Event monitor ordered on discharge - Will be discharged on aspirin, Plavix for 75 days - He will require blood pressure management on discharge - Patient also had constipation, discharged on bowel regimen - Due to multiple episodes of urinary retention, with his right-sided deficits, discharged with Alanis catheter in place, as self cathing himself with his acute CVA was too difficult - Patient had pyelonephritis during his hospitalization requiring IV antibiotics, discharged on Levaquin - Will follow-up with urology as outpatient for removal of Alanis catheter - Right eye conjunctivitis, discharge with eyedrops Physical Exam Const: COMMON NORMALS: no acute distress and patient oriented x3 Resp: COMMON NORMALS: normal respiratory effort, No retractions, No use of accessory muscles and clear to auscultation bilaterally AUSCULTATION: clear to auscultation bilaterally Cardio: COMMON NORMALS: regular rate, regular rhythm, S1 normal heart sound present and S2 normal heart sound present RATE: regular rate RHYTHM: regular rhythm HEART SOUNDS: S1 normal heart sound present and S2 normal heart sound present GI: COMMON NORMALS: Normal to inspection, nondistended, normoactive bowel sounds present and non-tender Extremity: COMMON NORMALS: no pedal edema Neuro: COMMON NORMALS: patient oriented x3 Psych: COMMON NORMALS: mental status grossly normal Urinary Catheter Management: Alanis: Cath Placed During This Visit: yes, but has since been removed by the nurse Reason for Continuing Indwelling Catheter: Acute Urinary Retention or Obstruction Urinary Catheter Date of Insertion: 10/28/24 Urinary Catheter Time of Insertion: 15:31 Date Urinary Catheter Removed: 10/31/24 Time Urinary Catheter Discontinued: 06:00 Discharge Data Studies Completed and Pending Completed Studies During Hospitalization Category Date Time Status CT abdomen wo con [id number] Routine Cat Scan 10/29/24 14:[address] head thrombolytic [id number] Stat Cat Scan 10/27/24 11:[address] head wo con* [id number] Routine Cat Scan 10/28/24 09:00 Completed CTA head neck [CT angio headneck* [id number]] Stat Cat Scan 10/27/24 11:43 Completed CXRP [XR chest 1V portable [id number]] Routine Exams 10/29/24 09:26 Completed XR KUB portable [id number] Routine Exams 11/02/24 14:24 Completed XR chest 1V portable [id number] Stat Exams 10/27/24 11:04 Completed XR shoulder RT min 2V* [id number] Routine Exams 10/30/24 17:09 Completed MR head wo con* [id number] Routine MRI 10/30/24 08:00 Completed CV. echo complete* [id number] Routine Ultrasound 10/27/24 14:06 Completed CV. echo lmt wo/w bubble [id number] Routine Ultrasound 10/28/24 17:43 Completed US abdomen complete* [id number] Routine Ultrasound 10/28/24 09:16 Completed Pending at discharge Category Date Time Status CLARY Profile Rheumatology Stat Lab 10/29/24 08:57 Results Factor 5 Leiden Mutation Stat Lab 10/29/24 18:37 Received PROTHROMBIN (FACTOR II) [id number] Stat Lab 10/29/24 18:37 Received Radiology Impressions Head/Neck CTA 10/27/24 11:43 IMPRESSION: 1. No significant cervical carotid artery stenosis. Mild plaque and intimal thickening. 2. Intact vertebral arteries. 3. Paucity of vessels distal M2/M3 middle cerebral artery territory on the LEFT. No identifiable thrombus. 4. No additional areas of stenosis or aneurysm. Head CT 10/28/24 09:00 IMPRESSION: 1. No acute intracranial hemorrhage or edema. 2. No sulcal effacement or subacute infarct identified. Abdomen Ultrasound 10/28/24 09:16 Impression: 1. Cholelithiasis. Numerous stones within the gallbladder. 2. No intrahepatic duct dilatation. Chest X-Ray 10/29/24 09:26 Impression: 1. Possible pneumonia and/or atelectasis over surface of left diaphragm. 2. Atherosclerosis. Abdomen CT 10/29/24 14:20 IMPRESSION: 1. Cholelithiasis. Numerous stones filling the gallbladder lumen. No adjacent inflammation to suggest acute cholecystitis. No common bile duct obstruction. 2. Large RIGHT renal calcification measuring 2.0 x 0.6 cm. Calcification centered in the pelvis with surrounding mild inflammatory changes but no obstruction. Mild perinephric stranding is also present. 3. No LEFT renal obstruction. Head MRI 10/30/24 08:00 IMPRESSION: 1. Small area of acute ischemia involving the RIGHT medulla and cervical medullary junction. Small amount of associated edema. 2. No other acute findings. Message LEFT for Norberto Lombardi MD at 10/30/2024 2:08 PM. Shoulder X-Ray 10/30/24 17:09 IMPRESSION: No acute findings. KUB X-Ray 11/02/24 14:24 IMPRESSION: As above. Laboratory Results WBC 12.91 10^3/uL (3.29-11.43) H 10/31/24 05:01 RBC 4.75 10^6/uL (3.85-5.65) 10/31/24 05:01 Hgb 14.20 g/dL (11.27-16.99) 10/31/24 05:01 Hct 43.0 % (37-53) 10/31/24 05:01 MCV 90.5 fl (82-101) 10/31/24 05:01 MCH 29.9 pg (27-33) 10/31/24 05:01 MCHC 33.0 g/dL (30-55) 10/31/24 05:01 RDW 12.8 % (12.1-15.1) 10/31/24 05:01 Plt Count 198 10^3/cmm (157-399) 10/31/24 05:01 MPV 10.8 fL (7.4-10.4) H 10/31/24 05:01 Neut % (Auto) 68.0 % 10/31/24 05:01 Lymph % (Auto) 17.6 % 10/31/24 05:01 Meigs % (Auto) 11.0 % 10/31/24 05:01 Eos % (Auto) 2.6 % 10/31/24 05:01 Baso % (Auto) 0.3 % 10/31/24 05:01 Neut # (Auto) 8.78 10^3/uL (1.8-7.7) H 10/31/24 05:01 Lymph # (Auto) 2.3 10^3/uL (0.8-4.8) 10/31/24 05:01 Meigs # (Auto) 1.4 10^3/uL (0.2-0.9) H 10/31/24 05:01 Eos # (Auto) 0.3 10^3/uL (0.0-0.8) 10/31/24 05:01 Baso # (Auto) 0.0 10^3/uL (0.0-0.1) 10/31/24 05:01 Nucleated RBC % (auto) 0 % 10/31/24 05:01 Nucleated RBCs # 0.0 /100WBC 10/31/24 05:01 ESR 18 mm/hr (0-10) H 10/29/24 02:04 PT 13.80 SECONDS (12.1-14.9) 10/27/24 11:51 INR 0.99 (0.8-1.2) 10/27/24 11:51 APTT 21.9 SECONDS (23.9-36.7) L 10/27/24 11:51 Prot C Funct Activity 139 % normal (70-180) 10/29/24 18:37 Protein S Activity 92 % normal (70-150) 10/29/24 18:37 Sodium 137 mmol/L (136-145) 10/31/24 05:01 Potassium 4.2 mmol/L (3.5-5.1) 10/31/24 05:01 Chloride 102 mmol/L (98-107) 10/31/24 05:01 Carbon Dioxide 24 mmol/L (22-29) 10/31/24 05:01 Anion Gap 15.2 (5-19) 10/31/24 05:01 BUN 21 mg/dL (8-23) 10/31/24 05:01 Creatinine 0.9 mg/dL (0.7-1.2) 10/31/24 05:01 GFR Calculation 85.5 mL/min (90-130) L 10/31/24 05:01 Glucose 106 mg/dL (65-115) 10/31/24 05:01 POC Glucose 124 mg/dL (70-110) H 10/27/24 11:04 Estimat Average Glucose 114 10/28/24 03:18 Hemoglobin A1c 5.6 % (4.0-6.0) 10/28/24 03:18 Calculated Osmolality 287 mOsm/kg (285-295) 10/31/24 05:01 Calcium 8.5 mg/dL (8.5-10.5) 10/31/24 05:01 Total Bilirubin 0.9 mg/dL (0.15-1.2) 10/31/24 05:01 AST 27 U/L (0-40) 10/31/24 05:01 ALT 26 U/L (0-41) 10/31/24 05:01 Alkaline Phosphatase 80 U/L (40-130) 10/31/24 05:01 Troponin T Baseline 17 ng/L (0-15) H 10/29/24 15:15 Troponin T 120 Minute 17.28 ng/L (0-15) H 10/29/24 16:57 Delta Troponin T 0.28 ABS# (0-10) 10/29/24 16:57 Troponin T Hi Sens 6Hr 17.15 ng/L (0-15) H 10/29/24 21:39 Troponin T Hi Sens 6Hr Delta 0.15 ng/L (0-12) 10/29/24 21:39 C-Reactive Protein 4.4 mg/L (0.0-4.9) 10/29/24 02:04 Total Protein 6.8 g/dL (6.6-8.7) 10/31/24 05:01 Albumin 3.3 g/dL (3.5-5.2) L 10/31/24 05:01 Globulin 3.5 g/dL (1.3-4.6) 10/31/24 05:01 Triglycerides 161 mg/dL (0-150) H 10/28/24 03:18 Cholesterol 212 mg/dL (0-200) H 10/28/24 03:18 LDL Cholesterol, Calc 146 mg/dL (50-129) H 10/28/24 03:18 HDL Cholesterol 34 mg/dL (60-100) L 10/28/24 03:18 LDL/HDL Ratio 4.29 RATIO (0.00-3.22) H 10/28/24 03:18 Cholesterol/HDL Ratio 6.24 mg/dL (1.0-5.00) H 10/28/24 03:18 Homocysteine 14.18 umol/l (0-15) 10/29/24 18:37 Procalcitonin 0.08 ng/mL (0-0.5) 10/29/24 02:04 Urine Color Red (Yellow) A 10/27/24 14: Urine Appearance Cloudy (CLEAR) A 10/27/24 14:29 Urine pH 7.0 (5-7) 10/27/24 14:29 Ur Specific Thornton 1.067 (1.005-1.030) H 10/27/24 14: Urine Protein 1+ (Negative) A 10/27/24 14: Urine Glucose (UA) Negative (Normal) 10/27/24 14: Urine Ketones Negative (Negative) 10/27/24 14: Urine Blood 3+ (Negative) A 10/27/24 14: Urine Nitrate Negative (Negative) 10/27/24 14: Urine Bilirubin Negative (Negative) 10/27/24 14: Urine Urobilinogen 1.0 mg/dL (Negative) 10/27/24 14:29 Ur Leukocyte Esterase 1+ (Negative) A 10/27/24 14:29 Urine RBC >100 /hpf (0-2) H 10/27/24 14:29 Urine WBC 6-10 /hpf (0-5) 10/27/24 14:29 Ur Squamous Epith Cells 0-5 /hpf (0-5) 10/27/24 14: Amorphous Sediment Not Reportable 10/27/24 14:29 Urine Bacteria None seen /hpf (NONE) 10/27/24 14:29 Hyaline Casts 0.40 /lpf 10/27/24 14:29 CLARY Nuclear Membr Pat Nuclear, homogeneous A 10/29/24 08:57 CLARY IFA Animal Tis Ttr 1:320 titer H 10/29/24 08:57 CLARY IFA Animal Tis Res Positive (NEGATIVE) A 10/29/24 08:57 JESE-1 Antibody <1.0 neg AI (<1.0 NEG) 10/29/24 08:57 SS-A Antibody <1.0 neg AI (<1.0 NEG) 10/29/24 08:57 SS-B Antibody <1.0 neg AI (<1.0 NEG) 10/29/24 08:57 Sm (Solis) Antibody <1.0 neg AI (<1.0 NEG) 10/29/24 08:57 BLACKTOP SPREADER Antibody <1.0 neg AI (<1.0 NEG) 10/29/24 08:57 Scl-70 Antibody <1.0 neg AI (<1.0 NEG) 10/29/24 08:57 Centromere B Antibody <1.0 neg AI (<1.0 NEG) 10/29/24 08:57 Thyroid Peroxidase Ab 294 IU/mL (<9) H 10/29/24 08:57 Anti-Cardiolip IgG,A,M <2.0 APL-U/mL 10/29/24 18:37 Complement C3c 140 mg/dL (82-185) 10/29/24 08:57 Complement C4c 17 mg/dL (15-53) 10/29/24 08:57 CH50 Classical Pathway >60 U/mL (31-60) H 10/29/24 08:57 Vitals Last Vital Signs Temp 97.8 F 11/04/24 11:33 Pulse 62 11/04/24 11:33 Resp 18 11/04/24 11:33 BP 122/71 11/04/24 11:33 Pulse Ox 95 11/04/24 11:33 O2 Del Method Room Air 11/03/24 16:03 Discharge Plan Discharge Patient Disposition: Home Condition: Stable Prescriptions: New clopidogrel 75 mg Tablet 75 mg PO DAILY 21 Days Qty: 21 0RF chlorthalidone 25 mg Tablet 25 mg PO DAILY 30 Days Qty: 30 0RF amlodipine 5 mg Tablet 5 mg PO DAILY 30 Days Qty: 30 0RF erythromycin 5 mg/gram (0.5 %) Ointment 1 applic eye-right QID 7 Days Qty: 3.5 0RF polyethylene glycol 3350 17 gram Powder In Packet 17 g PO DAILY 30 Days Qty: 30 0RF hydrocodone-acetaminophen 5-325 mg Tablet 1 tab PO Q6H PRN (Reason: Moderate Pain) 7 Days Qty: 28 0RF sennosides-docusate sodium [Stool Softener-Laxative] 8.6-50 mg Tablet 1 tab PO BID 30 Days Qty: 60 0RF tizanidine 4 mg Tablet 4 mg PO BID PRN (Reason: Spasms) 7 Days Qty: 14 0RF lactulose 10 gram/15 mL Solution 20 g PO Q12H PRN (Reason: Constipation) 30 Days Qty: 1200 0RF levofloxacin 750 mg tablet 750 mg PO DAILY 5 Days Qty: 5 0RF hydralazine 10 mg tablet 10 mg PO BID PRN (Reason: hypertension) 30 Days Qty: 60 0RF Rx Instructions: for sbp>180 or dbp>100 Continued aspirin 81 mg tablet,chewable 81 mg PO QAM 30 Days Qty: 30 0RF Discontinued clonidine HCl 0.1 mg tablet See Rx Instructions .ROUTE .COMPLEX Rx Instructions: Take 1 tablet by mouth as needed for blood pressure greater than 160/90. Max of 3 times daily. Discharge Orders: Discharge Order (Routine); Ordered 11/04/24 Ordered By: Norberto Lombardi Other Ambulatory Orders: MCT/Event Monitor 30 Days (Routine) Timeframe: 1 Day Facility: [facility] - Location: Radiology Ordered By: Norberto Lombardi Referrals: Michelle Moctezuma MD [Physician, Neurology] - 11/12/24 8:00 am Referral Note: Ricky Soriano MD [Referring, Urology] - 1 week Referral Note: patient being discharged with alanis We have notified your physician's clinic of the need for a follow-up appointment to be scheduled. If you have not heard from them within the next 2 business days, please call them directly. Chalino Squires MD [Primary Care Provider, [facility]] - 11/11/24 10:40 am Discharge Diet: Cardiac Discharge Activity: Resume usual activity Patient Instructions: Hydralazine (By mouth), Clopidogrel (By mouth), Alanis Catheter Placement and Care (GEN), Stroke (GEN), Opioid Safety, Stroke Stoplight Activity Restrictions/Additional Instructions: - If you have any fevers or chills go to the emergency room - Monitor your blood pressure twice daily - If your systolic blood pressures greater than 180 or diastolic is greater than 100, please use hydralazine as needed - Please continue physical therapy - Discharged with Alanis catheter in place, follow-up with urology - Take antibiotics as prescribed - If any worsening strokelike symptoms please call [phone] - Continue erythromycin eyedrops for right eye conjunctivitis - Please monitor blood pressures closely - Discharge event monitor in place Discharge Attestations Time Spent in Discharge Care*: greater than 30 min Quality Metrics Clinical Quality Measures [ Cerebrovascular Accident { Contraindication to Antithrombotic: None; antithr ombotic prescribed; Contraindication to Anticoagulation: Overlap treatment not indicated; Contraindication to Statin: Adverse reaction to drug;}] Coding Level of Care Code 18419 Total time (in minutes) for Discharge: 45 Diagnoses Acute CVA (cerebrovascular accident) I63.9 Primary hypertension I10 Hypertension type: primary hypertension Gross hematuria R31.0 Hematuria type: gross Obstructive sleep apnea G47.33 History of kidney stones Z87.442 UTI (urinary tract infection) N39.0 Pyelonephritis N12
[2024-11-04 12:00] VITALS: BP 128/72; PULSE 59; RESP 20; TEMP 36.9; O2SAT 93
[2024-11-04 12:20] LABS: DNA AB (DS) CRITHIDIA,IFA NEGATIVE (NEGATIVE)
[2024-11-04] MEDS: aspirin 81 mg EC Tablet PO (13:54)
[2024-11-04] MEDS: tizanidine 4 mg Tablet 2 MG PO (14:40)
[2024-11-04] MEDS: HYDROcodone-acetaminophen 5-325 mg Tablet 1 TAB PO (14:40)
--- NOTE | 2024-11-04 15:10 | PC.OT ---
OT TREATMENT HELD DUE TO SCHEDULED PATIENT D/C
[2024-11-04 16:00] VITALS: BP 120/67; PULSE 75; RESP 18; TEMP 37; O2SAT 92
[2024-11-05 19:55] LABS: PROTHROMBIN (FACTOR II) 20210G NEGATIVE
--- NOTE | 2024-11-07 15:30 | PC.NURSE ---
membership coordinator follow up phone call- patient has neurology appointment next week, BPs have been within range, patient is tolerating meds, waiting to get his event monitor, his alanis is still in place and draining clear yellow, his is an EMT, patient feels like he is much improved, in good care, and doing just fine
[2024-11-07 19:48] LABS: Factor 5 Leiden Mutation NEGATIVE
== END 2024-11-04 17:35 | disposition home or self-care (01) | DRG 62 ==
LOC: ER 13:23 → ICU 13:40 → MEDSURG 10-28 17:03
PROVIDERS: Admitting Provider Hospitalist; Emergency Provider Emergency Medicine; PCP Family Medicine; Visit Provider Family Medicine
DX: I63.512 Cerebral infarction due to unspecified occlusion or stenosis of left middle cerebral artery (principal); G81.91 Hemiplegia, unspecified affecting right dominant side; N10 Acute pyelonephritis; R27.0 Ataxia, unspecified; R20.2 Paresthesia of skin; R29.704 NIHSS score 4; I10 Essential (primary) hypertension; R31.0 Gross hematuria; G47.33 Obstructive sleep apnea (adult) (pediatric); H10.9 Unspecified conjunctivitis; N20.0 Calculus of kidney; K76.0 Fatty (change of) liver, not elsewhere classified; K59.00 Constipation, unspecified; Z79.02 Long term (current) use of antithrombotics/antiplatelets; Z79.82 Long term (current) use of aspirin; Z79.891 Long term (current) use of opiate analgesic; Z86.73 Personal history of transient ischemic attack (TIA), and cerebral infarction without residual deficits; Z87.442 Personal history of urinary calculi
CPT/HCPCS: 36415; 36416; 51702; 51798; 70450; 70496; 70498; 70551; 71045; 73030; 74018; 74150; 76700; 80048; 80053; 80061; 81001; 81241; 82962; 83036; 83090; 84145; 84484; 85025; 85210; 85303; 85306; 85610; 85651; 85730; 86140; 86147; 86160; 86162; 86235; 86255; 86376; 87086; 92523; 92610; 93005; 93306; 96372; 96374; 96375; 96376; 97110; 97116; 97163; 97167; 97530; 99291; C8924; J0696; J1650; J2270; J2405; J3101; J3490; J7030; J7050; J9999

== ENCOUNTER 2024-11-13 19:29 | Emergency (ER) | payer SELFPAY ==
[2024-11-13 19:41] VITALS: BP 123/68; PULSE 66; RESP 16; TEMP 36.7; O2SAT 99; BMI 31.8
[2024-11-13 21:19] VITALS: BP 142/67; PULSE 61; O2SAT 96
[2024-11-13] MEDS: lidocaine 2% Urojet 20 mL TOPICAL (21:27)
--- NOTE | 2024-11-13 21:47 | W.ED.MALEGU ---
HPI - Male Genitourinary General: Chief complaint: Urogenital-Male Stated complaint: alanis removed 8hr+ no urine output yet Time Seen by Provider: 11/13/24 20:20 Source: patient and family Mode of arrival: wheelchair Limitations: no limitations History of Present Illness: Patient recently had a stroke. Was in the hospital, treated for UTI during that time. Had issue with urinary retention. He had straight cathing several times and then they put in a Alanis. He went to the urologist office today. They remove the Alanis into the bladder challenging which he passed. However he was at home and started having the feeling like he could not urinate again. He was full. On triage he was found to have greater than 700 cc in his bladder. No known fever or chills. Pain radiates to the right flank. Related Data Previous Rx's ?Medication ?Instructions ?Recorded amlodipine 5 mg tablet 5 mg PO DAILY 30 days #30 tabs 11/04/24 aspirin 81 mg chewable tablet 81 mg PO QAM 30 days #30 tabs 11/04/24 chlorthalidone 25 mg tablet 25 mg PO DAILY 30 days #30 tabs 11/04/24 clopidogrel 75 mg tablet 75 mg PO DAILY 21 days #21 tabs 11/04/24 hydralazine 10 mg tablet 10 mg PO BID PRN hypertension 30 11/04/24 days #60 tabs lactulose 10 gram/15 mL oral 20 g (30 mL) PO Q12H PRN 11/04/24 solution Constipation 30 days #1,200 mL polyethylene glycol 3350 17 gram 17 g PO DAILY 30 days #30 ea 11/04/24 oral powder packet sennosides 8.6 mg-docusate sodium 1 tab PO BID 30 days #60 tabs 11/04/24 50 mg tablet (Stool Softener-Laxative) Allergies Allergy/AdvReac Type Severity Reaction Status Date / Time lisinopril Allergy ALGY-Joint Verified 11/12/24 07:57 Pain fenofibrate AdvReac ADR-Muscle Verified 11/12/24 07:57 Pain [id number] Reductase AdvReac ADR-Muscle Verified 11/12/24 07:57 Inhibitor Pain Review of Systems General: Reports: 10 or more systems reviewed and unremarkable except in HPI and below PFSH ED PFSH: Medical History History of gallstones History of colitis Fatty liver History of kidney stones CPAP ventilation treatment not tolerated Obstructive sleep apnea Hypertension Chronic ischemic right middle cerebral artery (MCA) stroke (~05/2023) Social History Smoking and tobacco/nicotine status: former use of tobacco/nicotine Physical Exam Narrative: EXAM NARRATIVE: GENERAL: Severely neurologically damaged middle-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 MENTAL STATUS: He can follow simple commands. No cognitive dysfunction. CRANIAL NERVES: Visual banks were full to confrontation, direct and consensual. Extraocular movements were full without nystagmus. Both slow pursuit and saccadic eye movements were normal. PERRLA. Numb to pin on the right side of the face in all 3 distributions of the 5th cranial nerve. Flattening of the right nasolabial fold. Minimal dysarthria. MOTOR: Strength on the right arm and leg 3 -/5 meaning he does not have full antigravity strength. Fine movements very slow in the right hand. He was able to perform [id number] with a high amplitude low-frequency ataxic tremor. SENSATION: Anesthetic to all modalities in the right face and right arm. Preserved pin in the right leg. COORDINATION: Severe ataxia right arm and the right leg was too weak to test. DEEP TENDON REFLEXES: 2/4 throughout. GAIT: Unable to stand without to assistance. HEENT: Normocephalic without dysmorphic features. Conjunctivae were not injected and sclerae were nonicteric. NECK: Carotid upstroke was strong bilaterally without bruits. The thyroid was not enlarged and there were no palpable lymph nodes. CHEST: Clear to auscultation. CARDIOVASCULAR: The heart sounds were normal without murmur or gallop. Regular rate and rhythm. EXTREMITIES: He is very tall and heavy Abdomen: Tender over the suprapubic and right lower quadrant consistent with more of a fullness. No guarding or rebound. Course Vital Signs: Vital signs: Vital Signs Temperature 98.0 F 11/13/24 19:41 Pulse Rate 64 11/13/24 22:30 Respiratory Rate 16 11/13/24 19:41 Blood Pressure 138/67 11/13/24 22:30 Pulse Oximetry 95 11/13/24 22:30 Oxygen Delivery Me thod Room Air 11/13/24 22:30 MDM - Male Medical Decision Making Uro-Jet given, Alanis has been placed. Awaiting UA results at this time. Alanis has good output. UA is clean. Patient be discharged to follow-up with urology. Differential Diagnosis Likely urinary tract infection and acute retention of urine Medical Records I reviewed the patient's medical records. Lab Data I reviewed the patient's lab results. Laboratory Results Urine Color Yellow (Yellow) 11/13/24 21:45 Urine Appearance Clear (CLEAR) 11/13/24 21:45 Urine pH 5.5 (5-7) 11/13/24 21:45 Ur Specific Success 1.013 (1.005-1.030) 11/13/24 21:45 Urine Protein Negative (Negative) 11/13/24 21:45 Urine Glucose (UA) Negative (Normal) 11/13/24 21:45 Urine Ketones Negative (Negative) 11/13/24 21:45 Urine Blood 2+ (Negative) A 11/13/24 21:45 Urine Nitrate Negative (Negative) 11/13/24 21:45 Urine Bilirubin Negative (Negative) 11/13/24 21:45 Urine Urobilinogen 0.2 mg/dL (Negative) 11/13/24 21:45 Ur Leukocyte Esterase Negative (Negative) 11/13/24 21:45 Urine RBC 6-10 /hpf (0-2) 11/13/24 21:45 Urine WBC 0-5 /hpf (0-5) 11/13/24 21:45 Ur Squamous Epith Cells 0-5 /hpf (0-5) 11/13/24 21:45 Amorphous Sediment Not Reportable 11/13/24 21:45 Urine Bacteria None seen /hpf (NONE) 11/13/24 21:45 Hyaline Casts 0-4 /lpf H 11/13/24 21:45 No radiology studies performed this visit Discharge Plan Discharge Patient Disposition: Home Clinical Impression: Acute retention of urine Condition: Stable Prescriptions: No Action clopidogrel 75 mg Tablet 75 mg PO DAILY 21 Days Qty: 21 0RF chlorthalidone 25 mg Tablet 25 mg PO DAILY 30 Days Qty: 30 0RF amlodipine 5 mg Tablet 5 mg PO DAILY 30 Days Qty: 30 0RF polyethylene glycol 3350 17 gram Powder In Packet 17 g PO DAILY 30 Days Qty: 30 0RF sennosides-docusate sodium [Stool Softener-Laxative] 8.6-50 mg Tablet 1 tab PO BID 30 Days Qty: 60 0RF lactulose 10 gram/15 mL Solution 20 g PO Q12H PRN (Reason: Constipation) 30 Days Qty: 1200 0RF aspirin 81 mg tablet,chewable 81 mg PO QAM 30 Days Qty: 30 0RF hydralazine 10 mg tablet 10 mg PO BID PRN (Reason: hypertension) 30 Days Qty: 60 0RF Rx Instructions: for sbp>180 or dbp>100 Discharge Orders: Discharge ED (Routine); Ordered 11/13/24 Ordered By: Sudhir Guillen Referrals: Chalino Squires MD [Primary Care Provider, Family Practice] Discharge Diet: Usual diet Discharge Activity: Resume usual activity Patient Instructions: Alanis Catheter Placement and Care (ED) Activity Restrictions/Additional Instructions: Follow-up with your urologist within 10 days. Print Language: Citizen Of [place] Coding Level of Care Code ED [facility] for Billy Conner
[2024-11-13 22:24] LABS: Bilirubin Urine Negative (Negative); Blood Urine 2+ (Negative); Glucose Urine UA Negative (Normal); Ketones Urine Negative (Negative); Leukocyte Esterase Urine Negative (Negative); Nitrate Urine Negative (Negative); Protein Urine Negative (Negative); Specific Gravity, Urine 1.013 (1.005-1.030); Urine Appearance Clear (CLEAR); Urine Color Yellow (Yellow); Urobilinogen Urine 0.2 mg/dL (Negative); pH Urine 5.5 (5-7)
[2024-11-13 22:30] VITALS: BP 138/67; PULSE 64; O2SAT 95
[2024-11-13 22:30] LABS: Bacteria Urine None Seen /hpf; Hyaline Casts Urine 0-4 /lpf; Squamous Epithelial Cell Urine 0-5 /hpf (0-5); WBC Urine 0-5 /hpf (0-5)
[2024-11-13 22:54] VITALS: BP 138/67; PULSE 63; O2SAT 97
== END 2024-11-13 22:55 | disposition home or self-care (01) ==
PROVIDERS: Emergency Provider Emergency Medicine; PCP Family Medicine
DX: R33.8 Other retention of urine (principal); Z79.02 Long term (current) use of antithrombotics/antiplatelets; Z79.82 Long term (current) use of aspirin; Z87.891 Personal history of nicotine dependence; I10 Essential (primary) hypertension
CPT/HCPCS: 51702; 81001; 87086; 99283; J9999